=== PATIENT | female | born 1970 | race Caucasian/White ===

== ENCOUNTER 2019-11-06 14:15 | Emergency (ER) | payer OTHER, SELFPAY ==
[2019-11-06 14:20] VITALS: BP 104/76; PULSE 73; RESP 20; TEMP 36.3; O2SAT 97
--- NOTE | 2019-11-06 14:56 | ED.GENADULT ---
HPI - General Adult General Chief complaint: Skin/Abscess/Foreign Body Stated complaint: Rash on left wrist History of Present Illness HPI narrative: This is a 49-year-old female that comes in with a raised area to her left elbow and arm patient said started approximately a day ago Related Data Home Medications Medication Instructions Recorded Confirmed Iud 11/06/19 Klonopin 0.5 mg PO PRN 11/06/19 11/06/19 bupropion HCl 150 mg PO BID 11/06/19 11/06/19 gabapentin 600 mg PO HS 11/06/19 11/06/19 lamotrigine 100 mg PO BID 11/06/19 11/06/19 propranolol 40 mg PO Q12H 11/06/19 11/06/19 venlafaxine 100 mg PO BID 11/06/19 11/06/19 Allergies Allergy/AdvReac Type Severity Reaction Status Date / Time amoxicillin Allergy Unknown Verified 08/13/17 17:58 calcium carbonate Allergy Unknown Verified 08/13/17 17:58 iohexol Allergy Unknown Verified 07/18/19 17:41 [From CONTRAST - CT, XRAY] prasterone (DHEA) Allergy Unknown Verified 08/13/17 17:58 prochlorperazine Allergy Unknown Verified 07/18/19 17:41 CALCIUM PHOSPHATE Allergy Unknown Uncoded 08/13/17 17:58 Review of Systems Review of Systems: Narrative: CONSTITUTIONAL: Denies fever, chills, or sweats. EYES: Denies visual changes, redness, or discharge. ENT: Denies rhinorrhea, congestion, sore throat, or otalgia. CARDIOVASCULAR:Denies chest pain, palpitations, or edema. RESPIRATORY: Denies cough or dyspnea. GASTROINTESTINAL: Denies abdominal pain, nausea, vomiting, or diarrhea. GENITOURINARY: Denies dysuria or hematuria. SKINpositive rash or itching. MUSCULOSKELETAL:Denies back pain, joint pain, or myalgia. NEUROLOGIC: Denies headache, numbness, or weakness. PSYCHIATRIC:Denies anxiety or depression We will PMFSH Social History Social History (Updated 07/18/19 @ 17:57 by Henrik Razo PA-C) Smoking status: Never smoker Gender identity (if verbalized by the patient): Female Comments At time as signature, I have reviewed and agree with nursing past medical, social, surgical and family history. Please see nursing chart for further information. There is no relevant family history pertinent to the presenting complaint. Exam Narrative: Exam Narrative: GENERAL:Well-appearing, well-nourished, and in no acute distress. HEAD:Normocephalic, atraumatic. EYES: PERRLA and EOMI. ENT: Nares clear, no rhinorrhea or epistaxis. Mucous membranes moist. NECK: Supple. CHEST: Clear to auscultation. No respiratory distress. HEART: Regular rate and rhythm. No murmur heard. Normal peripheral pulses. ABDOMEN: Soft, nontender, nondistended, normal active bowel sounds. EXTREMITIES: Normal range of motion. No edema. SKIN: Warm, dry, positive erythema with itching rash. NEURO: No focal deficits. Alert and oriented x3. Course Vital Signs Vital signs: Vital Signs Temperature 97.3 F L 11/06/19 14:20 Pulse Rate 73 11/06/19 14:20 Respiratory Rate 20 11/06/19 14:20 Blood Pressure 104/76 11/06/19 14:20 Pulse Oximetry 97 11/06/19 14:20 Temperature 97.3 F L 11/06/19 14:20 Pulse Rate 73 11/06/19 14:20 Respiratory Rate 20 11/06/19 14:20 Blood Pressure 104/76 11/06/19 14:20 Pulse Oximetry 97 11/06/19 14:20 Medical Decision Making Vital Signs Vital Signs: Vital Signs Temperature 97.3 F L 11/06/19 14:20 Pulse Rate 73 11/06/19 14:20 Respiratory Rate 20 11/06/19 14:20 Blood Pressure 104/76 11/06/19 14:20 Pulse Oximetry 97 11/06/19 14:20 Temperature 97.3 F L 11/06/19 14:20 Pulse Rate 73 11/06/19 14:20 Respiratory Rate 20 11/06/19 14:20 Blood Pressure 104/76 11/06/19 14:20 Pulse Oximetry 97 11/06/19 14:20 Discharge Plan Discharge Clinical Impression: Contact dermatitis Qualifiers: Contact dermatitis type: allergic Contact dermatitis trigger: other trigger Qualified Code(s): L23.89 - Allergic contact dermatitis due to other agents Patient Disposition: Home, Self-Care Condition: Stable Instructions:
== END 2019-11-06 15:17 | disposition home or self-care (01) ==
PROVIDERS: Emergency Provider Nurse Practitioner Family; PCP Internal Medicine
DX: L23.89 Allergic contact dermatitis due to other agents (principal); F41.9 Anxiety disorder, unspecified; F31.9 Bipolar disorder, unspecified; G47.30 Sleep apnea, unspecified
CPT/HCPCS: 99213; G0463

== ENCOUNTER 2021-02-15 16:38 | Emergency (ER) | payer OTHER, SELFPAY ==
--- NOTE | ~2021-02-15 | XR_ITS ---
EXAMINATION: XR cervical spine 4-5V DATE: 02/15/2021 17:46 INDICATION: Posterior neck pain. TECHNIQUE: 4 views of cervical spine were obtained. COMPARISON: None. FINDINGS: Bone alignment is normal. Vertebral body heights are normal. There is mildly decreased disc height at C6-C7. There is severe facet joint osteoarthritis at C7-T1. No central canal stenosis or p revertebral soft tissue swelling. IMPRESSION: 1. Mild cervical spondylosis. Reviewed, dictated and finalized at location A.
[2021-02-15 16:53] VITALS: BP 121/78; PULSE 81; RESP 20; TEMP 36.8; O2SAT 98
--- NOTE | 2021-02-15 17:30 | ED.NECK ---
HPI - Neck Pain/Injury General Chief Complaint: Neck Pain/Injury Stated Complaint: Pain in Neck and Back Time Seen by Provider: 02/15/21 17:31 Source: patient Mode of arrival: ambulatory Limitations: no limitations History of Present Illness HPI Narrative: Elisabeth Melara is a 50 yo female with PMH of bipolar disorder [facility] pain bilaterally at the base of her neck and top of her shoulders that started 2 weeks ago.. She does not know if it was related initially to lifting but has gotten progressively worse. Able to move her head all directions with some discomfort Related Data Home Medications Medication Instructions Recorded Confirmed bupropion HCl 150 mg PO BID 11/06/19 02/15/21 lamotrigine 100 mg PO BID 11/06/19 02/15/21 venlafaxine 100 mg PO BID 11/06/19 02/15/21 gabapentin 300 mg PO DAILY 02/15/21 02/15/21 propranolol 20 mg PO BID 02/15/21 02/15/21 Allergies Allergy/AdvReac Type Severity Reaction Status Date / Time amoxicillin Allergy Unknown Hives Verified 02/15/21 17:26 calcium carbonate Allergy Unknown Unknown Verified 02/15/21 17:26 iohexol Allergy Unknown Unknown Verified 02/15/21 17:26 [From CONTRAST - CT, XRAY] prasterone (DHEA) Allergy Unknown Unknown Verified 02/15/21 17:26 prochlorperazine Allergy Unknown Unknown Verified 02/15/21 17:26 CALCIUM PHOSPHATE Allergy Unknown Unknown Uncoded 02/15/21 17:26 Review of Systems Review of Systems: Narrative: CONSTITUTIONAL: Denies fever, chills, sweats. EYES: Denies visual changes, redness, discharge. ENT: Denies rhinorrhea, congestion, sore throat, otalgia. CARDIOVASCULAR: Denies chest pain, palpitations, edema. RESPIRATORY: Denies dyspnea, wheezing, cough GASTROINTESTINAL: Denies abdominal pain, nausea, vomiting, diarrhea. GENITOURINARY: Denies dysuria, hematuria, abnormal discharge SKIN: Denies rash or itching. NEUROLOGIC: Denies numbness, or focal weakness. PSYCHIATRIC: Denies anxiety or depression. Neck pain and pain across the top of the shoulders PMFSH Past Medical History Medical History (Updated 02/15/21 @ 18:12 by Bisi Walls CNP) Depression No acute medical problems Family History Family History Other Diabetes mellitus Heart disease High cholesterol Hypertension Social History Social History (Updated 02/15/21 @ 17:37 by Bisi Walls CNP) Smoking status: Never smoker Alcohol intake: current Gender identity (if verbalized by the patient): Female Comments At time of signature, I agree with nursing past medical, surgical, social and family history. There is no relevant family history pertinent to the presenting complaint. Exam Narrative: Exam Narrative: GENERAL: This is a well-nourished, well-developed patient, in mild distress. HEAD: normocephalic, atraumatic. EYES: Sclera clear/white. Vision is grossly intact. EARS: External ears normal, Hearing grossly intact. NOSE: External nose normal without nasal discharge, nares without redness, no rhinorrhea. THROAT: Mucous membranes moist, NECK: Neck supple, tender at base and when turns neck left or right or bends forward CARDIOVASCULAR: Regular rate and rhythm without murmurs, gallops, or rubs. RESPIRATORY: Clear to auscultation. Breath sounds equal bilaterally. No wheezes, rales, or rhonchi. GASTROINTESTINAL: Abdomen soft, SKIN: warm, intact with no suspicious lesions or rash, good texture and turgor. NEURO: awake, alert, and oriented to person, place and time. There were no obvious focal neurologic abnormalities. Steady gait EXTREMITIES: Normal range of motion. BACK: Nontender without deformity Course Course Emergency Course: Patient has neck pain that started about 2 weeks ago and is gotten progressively worse Cervical spine x-ray is mild cervical spondylosis, both bone and alignment is normal, vertebral body heights are normal, mild decrease in disc height C6 and 7, no prevert
[2021-02-15] MEDS: KETOROLAC (*BKC) 60 MG/2 ML VIAL IM (18:08)
== END 2021-02-15 18:25 | disposition home or self-care (01) ==
PROVIDERS: Emergency Provider Nurse Practitioner; PCP Internal Medicine
DX: M43.6 Torticollis (principal); M47.812 Spondylosis without myelopathy or radiculopathy, cervical region; F32.9 Major depressive disorder, single episode, unspecified
CPT/HCPCS: 72050; 96372; 99213; G0463; J1885

== ENCOUNTER 2021-04-07 12:55 | Emergency (ER) | payer OTHER, SELFPAY ==
[2021-04-07 12:58] VITALS: BP 115/84; PULSE 97; RESP 20; TEMP 36.3; O2SAT 97
--- NOTE | 2021-04-07 13:25 | ED.URI ---
HPI - URI/Sore Throat General Chief Complaint: Upper Respiratory Infection Stated Complaint: cough chest congestion Time Seen by Provider: 04/07/21 13:15 Source: patient and RN notes reviewed Mode of arrival: ambulatory Limitations: no limitations History of Present Illness HPI Narrative: Patient presents today complaining of 2-day history of cough with body aches that started yesterday. Denies shortness of breath, fever, congestion, rhinorrhea, sore throat, loss of taste or smell, vomiting or diarrhea. Patient's teenage daughter was just notified this morning that she is COVID-19 positive. Patient states the daughter has been quarantining to her bedroom. Patient has not been vaccinated against COVID-19. Patient took 1 dose of Jacquelin-Witherbee plus this morning without relief. MD elicited complaint: cough Related Data Home Medications Medication Instructions Recorded Confirmed bupropion HCl 150 mg PO BID 11/06/19 04/07/21 lamotrigine 100 mg PO BID 11/06/19 04/07/21 venlafaxine 100 mg PO BID 11/06/19 04/07/21 gabapentin 300 mg PO DAILY 02/15/21 04/07/21 propranolol 20 mg PO BID 02/15/21 04/07/21 cetirizine [Zyrtec] 10 mg PO DAILY 04/07/21 04/07/21 ferrous sulfate [FeroSul] 325 mg PO DAILY 04/07/21 04/07/21 montelukast [Singulair] 10 mg PO DAILY 04/07/21 04/07/21 tizanidine 4 mg PO BID 04/07/21 04/07/21 Allergies Allergy/AdvReac Type Severity Reaction Status Date / Time amoxicillin Allergy Unknown Hives Verified 04/07/21 13:08 calcium carbonate Allergy Unknown Unknown Verified 04/07/21 13:08 iohexol Allergy Unknown Unknown Verified 04/07/21 13:08 [From CONTRAST - CT, XRAY] prasterone (DHEA) Allergy Unknown Unknown Verified 04/07/21 13:08 prochlorperazine Allergy Unknown Unknown Verified 04/07/21 13:08 CALCIUM PHOSPHATE Allergy Unknown Unknown Uncoded 04/07/21 13:08 Review of Systems Review of Systems: CONSTITUTIONAL: Denies fever, chills, or sweats.+ Body aches EYES: Denies visual changes, redness, or discharge. ENT: Denies rhinorrhea, congestion, sore throat, or otalgia. CARDIOVASCULAR: Denies chest pain, palpitations, or edema. RESPIRATORY: Denies dyspnea. + Cough GASTROINTESTINAL: Denies abdominal pain, nausea, vomiting, or diarrhea. GENITOURINARY: Denies dysuria or hematuria. SKIN: Denies rash, itching, or wounds. MUSCULOSKELETAL: Denies back pain, joint pain, or myalgia. NEUROLOGIC: Denies headache, numbness, tingling, or weakness. PSYCH: Denies depression or anxiety. [facility] Past Medical History Medical History (Updated 04/07/21 @ 14:30 by Sierra Franco, [facility], ) Bipolar disorder Depression Migraines Sleep apnea Family History Family History Other Diabetes mellitus Heart disease High cholesterol Hypertension Social History Social History (Updated 02/15/21 @ 17:37 by Bisi Walls CNP) Smoking status: Never smoker Alcohol intake: current Gender identity (if verbalized by the patient): Female Comments At time of signature, I have reviewed and agree with nursing past medical, surgical, social and family history unless otherwise noted. Please see nursing chart for further information. There is no relevant family history pertinent to the presenting complaint Exam Narrative: GENERAL: Well-appearing, well-nourished, and in no acute distress. HEAD: Normocephalic, atraumatic. EYES: EOMI. No redness or drainage. Conjunctivae normal. ENT: Mucous membranes pink and moist. Nares clear. No rhinorrhea. TMs normal bilaterally. Throat normal. Uvula midline. NECK: Normal AROM. Supple. No lymphadenopathy. CHEST: No respiratory distress. Clear to auscultation. HEART: Regular rate and rhythm. No murmur appreciated. Normal peripheral pulses. EXTREMITIES: Normal range of motion. No edema. SKIN: Warm, dry, no rash. Capillary refill normal. Normal skin turgor. NEURO: No focal deficits. Alert and oriented x3. Gait steady. PSYCH: Normal
[2021-04-08 18:30] LABS: SARS-CoV-2 RNA PCR Positive
== END 2021-04-07 13:34 | disposition home or self-care (01) ==
PROVIDERS: Emergency Provider Nurse Practitioner; PCP Internal Medicine
DX: U07.1 COVID-19 (principal); F31.9 Bipolar disorder, unspecified; G47.30 Sleep apnea, unspecified
CPT/HCPCS: 99213; C9803; G0463; U0003; U0005

== ENCOUNTER 2023-04-28 19:17 | Emergency (ER) | payer OTHER, SELFPAY ==
[2023-04-28 19:24] VITALS: BP 119/82; PULSE 78; RESP 20; TEMP 36.3; O2SAT 96
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
== END 2023-04-28 19:55 | disposition home or self-care (01) ==
PROVIDERS: Emergency Provider Registered Nurse; PCP Internal Medicine
DX: T25.112A Burn of first degree of left ankle, initial encounter (principal); X08.8XXA Exposure to other specified smoke, fire and flames, initial encounter; F31.9 Bipolar disorder, unspecified
CPT/HCPCS: 99213; G0463

== ENCOUNTER 2023-12-21 13:28 | Emergency (ER) | payer OTHER, SELFPAY ==
[2023-12-21 13:52] VITALS: BP 116/77; PULSE 76; RESP 18; TEMP 36.7; O2SAT 98
--- NOTE | 2023-12-21 14:16 | ED.URI ---
HPI - URI/Sore Throat General Chief Complaint: Upper Respiratory Infection Stated Complaint: Chest Congestion/Sore Throat Time Seen by Provider: 12/21/23 14:05 Source: patient, RN notes reviewed and old records reviewed Mode of arrival: ambulatory Limitations: no limitations History of Present Illness HPI Narrative: 53 year old female who presents to [facility] with complaints of one week duration of cough, stuffy nose with some drainage,frontal headache, sore throat,body aches, fatigue and chest congestion.. Patient reports that yesterday she was real achy and was running a low grade fevers. Patient reports that she has history of seasonal allergies and sinus problems Patient reports that she has been taking OTC cold and sinus medication and also taking Zyrtec without resolution in her symptoms. MD elicited complaint: cough, sore throat, rhinorrhea, nasal congestion, sinus pain and other (body aches headache) Pertinent past history: sinusitis and seasonal allergies Onset (ago): week(s) (1) Severity: moderate Description of mucous: yellow Treatments prior to arrival: other (cold and sinus medication and Zyrtec) Related Data Home Medications Medication Instructions Recorded Confirmed bupropion HCl 150 mg tablet,12 hr 150 mg PO BID 11/06/19 12/21/23 sustained-release lamotrigine 100 mg tablet 100 mg PO BID 11/06/19 12/21/23 venlafaxine 100 mg tablet 100 mg PO BID 11/06/19 12/21/23 gabapentin 300 mg capsule 300 mg PO DAILY 02/15/21 12/21/23 propranolol 20 mg tablet 20 mg PO BID 02/15/21 12/21/23 cetirizine 10 mg tablet (Zyrtec) 10 mg PO DAILY 04/07/21 12/21/23 ferrous sulfate 325 mg (65 mg 325 mg PO DAILY 04/07/21 12/21/23 iron) tablet (FeroSul) famotidine 20 mg tablet 20 mg PO DAILY 12/21/23 12/21/23 topiramate 25 mg tablet 25 mg PO PRN PRN mirgraines 12/21/23 12/21/23 Allergies Allergy/AdvReac Type Severity Reaction Status Date / Time amoxicillin Allergy Unknown Hives Verified 12/21/23 13:46 calcium carbonate Allergy Unknown Unknown Verified 12/21/23 13:46 iohexol Allergy Unknown Unknown Verified 12/21/23 13:46 [From CONTRAST - CT, XRAY] prasterone (DHEA) Allergy Unknown Unknown Verified 04/07/21 13:08 prochlorperazine Allergy Unknown Unknown Verified 12/21/23 13:46 CALCIUM PHOSPHATE Allergy Unknown Unknown Uncoded 12/21/23 13:46 Review of Systems Review of Systems: CONSTITUTIONAL: Reports malaise, chills, sweats, low grade fever. EYES: Denies visual changes, redness, or discharge. ENT: Reports rhinorrhea, congestion, sinus pain, no otalgia and positive for sore throat. CARDIOVASCULAR: Denies chest pain, palpitations, or edema. RESPIRATORY: Reports cough.? Denies dyspnea. GASTROINTESTINAL: Denies abdominal pain, nausea, vomiting, diarrhea SKIN: Denies rash or itching. MUSCULOSKELETAL: Reports myalgia. NEUROLOGIC:Reports headache. All systems reviewed & are unremarkable except as noted in HPI and below PMFSH Past Medical History Medical History Bipolar disorder Depression Migraines Sleep apnea Family History Family History Other Diabetes mellitus Heart disease High cholesterol Hypertension Social History Social History Smoking status: Never smoker Alcohol intake: current Gender identity (if verbalized by the patient): Female Comments At time of signature, agree with nursing past medical, surgical, social and family history. There is no relevant family history pertinent to the presenting complaint Exam Narrative: GENERAL: Well-appearing, well-nourished, and in no acute distress. HEAD: Normocephalic EYES: PERRLA, conjunctivae clear ENT: Nares clear, turbinates edematous and erythematous, clear to yellow discharge, sinus pressure and frontal headache. Mucous membranes moist. TM pearly godinez with dull l
== END 2023-12-21 14:25 | disposition home or self-care (01) ==
PROVIDERS: Emergency Provider Registered Nurse; PCP Internal Medicine
DX: J32.9 Chronic sinusitis, unspecified (principal); F31.9 Bipolar disorder, unspecified
CPT/HCPCS: 99213; G0463

== ENCOUNTER 2024-04-02 10:54 | Outpatient (CLI) | payer OTHER, SELFPAY ==
--- NOTE | ~2024-04-02 | MM_ITS ---
EXAMINATION: MM screening tejinder BI w meliza HISTORY: Screening TECHNIQUE: Craniocaudal and mediolateral oblique 3-D tomosynthesis images were obtained and synthetic 2-D images were generated. CAD analysis was submitted and interpreted. COMPARISON: No prior mammogram is available for comparison at this institution. BREAST PARENCHYMAL COMPOSITION: There are scattered areas of fibroglandular density. FINDINGS: There is no evidence of suspicious mass, calcification, or architectural distortion to sugg est malignancy in either breast. There has been no suspicious interval change. IMPRESSION: 1. No mammographic evidence of malignancy. 2. Recommend routine screening mammography in one year. BI-RADS Category 1: Negative Reviewed, dictated and finalized at location B.
== END 2024-04-02 10:55 | disposition home or self-care (01) ==
LOC: ANHIMG 10:55
PROVIDERS: PCP Internal Medicine; Visit Provider Obstetrics & Gynecology
DX: Z12.31 Encounter for screening mammogram for malignant neoplasm of breast (principal)
CPT/HCPCS: 77063; 77067

== ENCOUNTER 2024-12-17 13:09 | Emergency (ER) | payer OTHER, SELFPAY ==
--- NOTE | ~2024-12-17 | XR_ITS ---
XR chest 2V Ordering provider: EDI Barrera History: 54 years Female with . cough . Comparison: None. FINDINGS: MEDIASTINUM: The cardiac silhouette is not enlarged. LUNGS: No infiltrates, effusions or pneumothorax. OTHER: No free air under the diaphragm. IMPRESSION: No acute cardiopulmonary pathology. Reviewed, dictated and finalized at location A.
--- OUTSIDE RECORDS SUMMARY | 2024-12-17 13:12 | XMS_ITS | Referral Summary ---
Author Organization [facility] Address [address] [place] [address] Care Team Providers Care Foxer Name Role Phone Susan Plasencia MD Primary Care Provider Encounters Date Type Department Care Team Description 12/08/2024 1:30 PM CDT Office Visit [facility] [address] [place] [address] Martin Shahid MD MANUEL (obstructive sleep apnea) (Primary Dx); Hypersomnia with sleep apnea; Essential tremor; Restless leg syndrome; Morbid obesity with BMI of 40.0-44.9, adult (HCC) from Last 3 Months Allergies Active Allergy Reactions Criticality Noted Date Comments Amoxicillin Other (See comments) Reaction: Unknown, Dihydroergotamine Other (See comments) High Reaction: almost like a heart attack, Metrizamide Other (See comments) Low 11/06/2015 seizures Other Other (See comments) Low 02/19/2017 DHE 45-caused a mild heart attack Penicillins Potassium Other (See comments) Low Reaction: Unknown to patient. Prochlorperazine Prochlorperazine Maleate Other (See comments) Low 11/06/2015 feels like bugs are crawling on her skin Medications buPROPion SR (WELLBUTRIN SR) 150 mg 12 hr tablet take 1 tablet by oral route 2 times every day 0 0 4 Active cyanocobalamin , vitamin B-12, (VITAMIN B-12) 1,000 mcg tablet extended release daily 0 0 01/26/201 6 Active cholecalcifero l (VITAMIN D3) 1,000 unit capsule daily 0 0 6 Active ibuprofen (ibuprofen) 200 mg tab/cap take 3 capsule by oral route every 6 hours as needed 0 0 6 Active levonorgestrel (MIRENA) IUD as directed by Intrauterine route 0 Device 0 7 Active omeprazole (PriLOSEC) 20 mg capsule take 1 capsule by oral route every day 30 minutes to 1 hour before a meal 0 0 6 Active Additional Information Patient taking differently: 40 mg, Reported on 12/08/2024 venlafaxine (EFFEXOR) 100 mg tablet take 1 tablet by oral route 2 times every day with food 0 0 7 Active lamoTRIgine (LaMICtal) 100 mg tablet Take 1 tablet (100 mg total) by mouth Active meloxicam (MOBIC) 15 mg tablet Take 1 tablet (15 mg total) by mouth 5 Active cetirizine (ZyrTEC) 10 mg tablet Take 1 tablet (10 mg total) by mouth daily Active ferrous sulfate 325 mg (65 mg of elemental iron) tabletIndicati ons:Iron Deficiency Anemia Take 1 tablet (325 mg total) by mouth daily 30 tablet 11 2 Active propranoloL (INDERAL) 20 mg tablet TAKE 1 TABLET(20 MG) BY MOUTH TWICE DAILY 180 tablet 4 Active topiramate (TOPAMAX) 25 mg tablet Take 1 tablet (25 mg total) by mouth daily 5 Active gabapentin (NEURONTIN) 600 mg tablet Take 1 tablet (600 mg total) by mouth daily 30 tablet 3 5 Active gabapentin (NEURONTIN) 400 mg capsule TAKE 1 CAPSULE BY MOUTH EVERY NIGHT 90 capsule 1 5 025 Discontin ued(Alter ivy therapy) Active Problems Problem Noted Date Diagnosed Date Nasal septal perforation 10/16/2020 Assessment & Plan (10/16/2020 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 Followed by Aquaphor apply pea-size amount into each nostril with a cotton tipped applicator, being carefully just to tuck it into each nostril, then massage soft portion of the outer nose to massage the ointment around inside the nose for at least 6 weeks Second possible option Septal button Third option would be referral Radiotelephone Technical Operator for discussion regarding repair Fatigue 10/26/2018 Migraine with aura and witho ut status migrainosus, not intractable 10/22/2018 Tremor 11/10/2017 Mixed stress and urge urinary incontinence 10/27 Overview (07/16/2020): Note: Unchanged Surveillance of previously p rescribed intrauterine contraceptive device 10/27/2017 Overview (07/16/2020): Note: Unchanged Sleep apnea 10/02/2016 Overview (11/27/2016): Sleep apnea 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 PLMD (periodic limb movement disorder) 6 Obesity with body mass index 30 or greater 09/18 Overview (11/27/2016): BMI 30+ - obesity Mixed anxiety depressive disorder 07/22/2014 Overview (11/27/2016): Depression with anxiety Insomnia 07/22/2014 Overview (11/27/2016): Insomnia Gastroesophageal reflux disease 01/07/2014 Overview (11/27/2016): ESOPHAGEAL REFLUX Depression 01/07/2014 Overview (11/28/2016): DEPRESSIVE DISORDER NEC Immunizations Immunization Administration Dates Next Due Influenza, Quadrivalent, Spl it, Intramuscular 05/11/2017,05/09/2016,05/23/2015 Tdap 02/19/2018,02/07/2016 Social History Tobacco Use Types Packs/Day Years Used Date Smoking Tobacco: Never Alcohol Use Standard Drinks/Week Comments Yes 0 (1 standard drink = 0.6 oz pur e alcohol) Comments No Sex and Gender Information Value Date Recorded Sex Assigned at Not on file Legal Sex Female 11:49 PM HIGH SCHOOL BIOLOGY TEACHER Gender Identity Not on file Sexual Orientation Not on file Last Filed Vital Signs Vital Sign Reading Time Taken Comments Blood Pressure 121/79 12/08/2024 1:44 PM CDT Pulse 81 12/08/2024 1:44 PM CDT Temperature 36.3 C (97.3 F) 10/16/2020 10:46 AM HIGH SCHOOL BIOLOGY TEACHER Respiratory Rate 16 02/19/2018 1:49 AM CDT Oxygen Saturation 93% 12/08/2024 1:44 PM CDT Inhaled Oxygen Concentration - - Weight 104.5 kg (230 lb 6.4 oz) 12/08/2024 1:44 PM CDT Height 157.5 cm (5' 2.01 ) 12/08/2024 1:44 PM CD T Body Mass Index 42.13 12/08/2024 1:44 PM CDT Plan of Treatment Not on file Procedures Procedure Name Priority Date/Time Associated Diagnosis Comments SCREENING MAMMOGRAM BILATERAL W LEFTY Schedule Routine, Read Routine (OP Routine) 03/29/2022 11:35 AM CDT Screening mammogram, encounter for THINPAP, REFLEX HPV ALL PTH Routine 07/14/2013 1:16 PM HIGH SCHOOL BIOLOGY TEACHER from Last 3 Months or Most Recently Relevant to Health Maintenance Results * Screening Mammogram Bilateral W Lefty (03/29/2022 11:35 AM CDT) Anatomical Region Laterality Modality Breast Bilateral Mammography 03/31/2022 12:1 1 PM CDT Impressions 03/31/2022 12:11 PM CDT There is no mammographic evidence of malignancy. A 1 year screening mammogram is recommended. BI-RADS: 1 - Negative. The patient has been or will be contacted. The patient will be entered into a reminder system with a target due date of 1 year for her next mammogram. Electronically signed by: Kiel Coto M.D. Narrative 03/31/2022 12:11 PM CDT EXAMINATION: SCREENING MAMMOGRAM BILATERAL W LEFTY ORDERING HEALTHCARE PROVIDER: SELF SCREENING MAMMOGRAM HISTORY: Routine screening mammography. COMPARISON: 10/27/2020, 05/18/2019, 09/06/2018, 04/05/2018, 10/14/2016 TECHNIQUE: CC and MLO views of the bilateral breasts were obtained with digital technique using breast tomosynthesis with C view. Computer aided detection was utilized. FINDINGS: DENSITY: There are scattered fibroglandular elements in the bilateral breasts. BREASTS: There are no suspicious masses, suspicious calcifications, or other suspicious findings in either breast. There has been no suspicious interval change. us Self Screening Mammogram IMG MAMMO PROCEDURES Fi nal Result * ThinPrep Pap, Reflex HPV all pth (07/14/2013 1:16 PM HIGH SCHOOL BIOLOGY TEACHER) SOURCE: SEE NOTE [facility] HISTORICAL RESULTS Comment:Cervix, Endocervix CLINICAL INFORMATION: SEE NOTE [facility] HISTORICAL RESULTS Comment:Normal exam LMP SEE NOTE [facility] HISTORICAL RESULTS Comment:Information not prov ided Previous Pap SEE NOTE [facility] HISTORICAL RESULTS Comment:06/16/12 Prev. Bx SEE NOTE [facility] HISTORICAL RESULTS Comment:Information not prov ided Pap, specimen adequacy SEE NOTE [facility] HISTORICAL RESULTS Comment: Satisfactory for evaluation. Endocervical/transformation zone component present. Age and/or menstrual status not provided HPV interp SEE NOTE [facility] HISTORICAL RESULTS Comment:Negative for intraep ithelial lesion or malignancy. Lactobacillus species SEE NOTE [facility] HISTORICAL RESULTS Comment: This Pap test has been evaluated with computer assisted technology. Tuber Operator SEE NOTE [facility] HISTORICAL RESULTS Comment: BLG, CT(ASCP) Test performed at [facility] [address] Director: VALERIE CADET DO, MPH 07/14/2013 1:16 PM HIGH SCHOOL BIOLOGY TEACHER Ying Messina NP LAB PATHOLOGY ORDERABLES F inal Result [facility] HISTORICAL RESULTS from Last 3 Months or Most Recently Relevant to Health Maintenance Insurance [facility] Member Subscriber Plan / Payer (Ef fective 2018-Present) Name:Elisabeth Melara Relation to Subscriber:Self Name:Elisabeth Melara Payer ID:[id number] (NAIC) Group ID:Not on file Type:MEDICAID RISK OTHER [address]: [address] [place] [address] [place] [address] Care Teams Foxer Relationship Specialty Start Date End Date Susan Plasencia MD [address] [place] [address] PCP - General 11/21/16
--- OUTSIDE RECORDS SUMMARY | 2024-12-17 13:12 | XMS_ITS | Clinical Summary ---
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): Nasal saline spray (Simply saline, Little Remedies, [place], [place]) 2 second sprays or 2 squeezes into [...] Septal button Third option would be referral Furniture Packer for discussion regarding repair Fatigue 10/26/2018 Migraine [...] Depression 01/07/2014 Overview (11/28/2016): DEPRESSIVE DISORDER NEC Encounters Date Type Department Care Team Description 12/08/2024 1:30 PM CDT Office Visit [facility] [address] [place] [address] [address] [address] Martin Shahid MD MANUEL (obstructive sleep apnea) (Primary Dx); Hypersomnia with sleep apnea; Essential tremor; Restless leg syndrome; Morbid obesity with BMI of 40.0-44.9, adult (HCC) from Last 3 Months Immunizations Immunization Administration Dates Next Due Influenza, Quadrivalent, Spl it, Intramuscular 05/11/2017,05/09/2016,05/23/2015 Tdap 02/19/2018,02/07/2016 Surgical History Surgery Date Site/Laterality Comments OTHER SURGICAL HISTORY , compound presentation: section OTHER SURGICAL HISTORY Ovarian cyst, pelvic pain - Endometriosis: Laparoscopic LSO BREAST BIOPSY Right pt was 20 yrs old at the time OOPHORECTOMY Left Medical History Medical History Date Comments Hx Other Medical lumpectomy-Rt b reast/benign Gastroesophageal reflux disease GERD Hx Other Medical Headache, migra ine Depression Depression History of multiple allergies Al lergies Hx Other Medical , comp ound presentation; Comments: RED 07/22/2014 - Hx Other Medical Ovarian cyst, p elvic pain - Endometriosis; Comments: RED 07/22/2014 - Family History Medical History Relation Name Comments Ovarian cancer Cousin Cancer, ovari an; Diabetes type II Father Diabetes -T ype II; Hyperlipidemia Father Hyperlipidemi a; Hypertension Father Hypertension; Other Father Alive and well; Diabetes type II Mother Diabetes -T ype II; Hypothyroidism Mother Hypothyroidis m; Other Mother Alive and well; Colon cancer Mother's Brother Cancer, col on; Breast cancer Mother's Sister Cancer, juan carlos ast; Breast cancer Other Maternal cousin x2 Cancer, breast; Relation Name Status Comments Cousin Father Alive Mother Alive Mother's Brother Mother's Sister Other Maternal cousin x2 Social History Tobacco Use Types Packs/Day Years Used Date Smoking Tobacco: Never Alcohol Use Standard Drinks/Week Comments Yes 0 (1 standard drink = 0.6 oz pur e alcohol) Comments No Sex and Gender Information Value Date Recorded Sex Assigned at Not on file Legal Sex Female 11:49 PM MILLING MACHINE TENDER Gender Identity Not on file Sexual Orientation Not on file Obstetrics History Para Term AB IAB SAB Ectopic Multiple Livin g Live Births 3 3 3 Date Outcome GA Total Labor Labor/2nd/3rd Weight Sex Type Anes PTL Lucita A1 A5 Name Clin Term Term Term Last Filed Vital Signs Vital Sign Reading Time Taken Comments Blood Pressure 121/79 12/08/2024 1:44 PM CDT Pulse 81 12/08/2024 1:44 PM CDT Temperature 36.3 C (97.3 F) 10/16/2020 10:46 AM MILLING MACHINE TENDER Respiratory Rate 16 02/19/2018 1:49 AM CDT Oxygen Saturation 93% 12/08/2024 1:44 PM CDT Inhaled Oxygen Concentration - - Weight 104.5 kg (230 lb 6.4 oz) 12/08/2024 1:44 PM CDT Height 157.5 cm (5' 2.01 ) 12/08/2024 1:44 PM CD T Body Mass Index 42.13 12/08/2024 1:44 PM CDT Plan of Treatment Health Maintenance Due Date Last Done Comments Colon Cancer Screening-Colonoscopy 1972 Depression Screening 1972 Hepatitis C Screening 1972 Hepatitis B Screening 1990 Regular Well Visit/Exam 18-64 1990 Cervical Cancer Screening 07/14/2014 07/14/2013 Zoster Vaccine (1 of 2) 2022 Breast Cancer Screening-Mammogram 03/29/2023 03/29/2022, 10/27/2020, 05/18/2019, Additional history exists Influenza Vaccine (Season Ended) 2025 05/11/2017, 05/09/2016, 05/23/2015 DTaP/Tdap/Td Vaccine (3 - Td or Tdap) 02/20/2028 02/19/2018, 02/07/2016 Pneumococcal vaccine <65 Aged Out No longer eligible based on patient's age to complete this topic Procedures Procedure Name Priority Date/Time Associated Diagnosis Comments SCREENING MAMMOGRAM BILATERAL W LEFTY Schedule Routine, Read Routine (OP Routine) 03/29/2022 11:35 AM CDT Screening mammogram, encounter for THINPAP, REFLEX HPV ALL PTH Routine 07/14/2013 1:16 PM MILLING MACHINE TENDER from Last 3 Months or Most Recently [...] Reflex HPV all pth (07/14/2013 1:16 PM MILLING MACHINE TENDER) SOURCE: SEE NOTE [facility] HISTORICAL RESULTS Comment:Cervix, [...] has been evaluated with computer assisted technology. Manufacturing Engineer Assembly SEE NOTE [facility] HISTORICAL RESULTS Comment: BLG, CT(ASCP) Test performed at [facility] [address] [address] Director: VALERIE CADET DO, MPH 07/14/2013 1:16 PM MILLING MACHINE TENDER Ying Messina NP LAB PATHOLOGY ORDERABLES F inal Result [facility] HISTORICAL RESULTS from Last 3 Months or Most Recently Relevant to Health Maintenance Insurance [facility] Care Teams Livestock Slaughterer Relationship Specialty Start Date End Date Susan Plasencia MD [address] [place] [address] PCP - General 11/21/16
--- OUTSIDE RECORDS SUMMARY | 2024-12-17 13:12 | XMS_ITS | Clinical Summary ---
Author Organization [facility] Address [address] [place] [address] Phone Care Team Providers Care Stapler Machine Name Role Phone DESTIN BENOIT MD Unavailable [phone] MADDIE CARRASCO Primary Care Provider [phone] Reason for Visit and Chief Complaint gynecologic annual exam, Pt presents for problem in addition to annual exam - The Chief Complaint is: WWE and IUD ck Problems Includes: Problems addressed during this encounter and other active Problems All Visits Onset Date Resolved Date Provider Condition S tatus Gynecologic Services Intrauterine Device (Iud) Checking 10/27/2017 DESTIN BENOIT MD Active Last Documented On 10/27/2017 2:56PM ; [facility] Note: Unchanged Urge and Stress Incontinence 10/27/2017 DESTIN BENOIT MD Active Last Documented On 10/27/2017 2:56PM ; [facility] Note: Unchanged Plan of Treatment - Weight loss diet - Last Documented On 07/30/2020 4:11PM ; [facility] - Clinical summary provided to patient - Last Documented On 07/30/2020 4:11PM ; [facility] PT TO CALL WITH ANY CHANGE IN STATUS ALL QUESTIONS ANSWERED WITH UNDERSTANDING VERBALIZED BY PT. - Last Documented On 07/30/2020 4:11PM ; [facility] Instructions to patient Instructed to call if excess rhys bleeding or abdominal/pelvic pain Last Documented On 0 3:54PM ; [facility] Instructions For Patient: Mo nthly Self Breast Exam Last Documented On 0 3:54PM ; [facility] Recommend diet and exercise at least 30 min three times per week Last Documented On 0 3:54PM ; [facility] Education and Decision Aids were provided during visit for: Patient education RE: shalom kumar signals associated with hormonal contraceptive use including abdominal, chest, or leg pain, headaches or visual disturbances Last Documented On 0 3:54PM ; [facility] Patient Education: Daily irwin cium and vitamin D Last Documented On 0 3:54PM ; [facility] Assessments Includes: Assessments from this encounter Findings - NORMAL FEMALE EXAM - Last Documented On 07/30/2020 4:11PM ; [facility] - Screen malignant neoplasm cervix - Last Documented On 07/30/2020 4:11PM ; [facility] Instructions Includes: Instructions from this encounter Instructions to patient Instructed to call if excess rhys bleeding or abdominal/pelvic pain Last Documented On 0 3:54PM ; [facility] Instructions For Patient: Mo nthly Self Breast Exam Last Documented On 0 3:54PM ; [facility] Recommend diet and exercise at least 30 min three times per week Last Documented On 0 3:54PM ; [facility] Education and Decision Aids were provided during visit for: Patient education RE: lorenaerika josé signals associated with hormonal contraceptive use including abdominal, chest, or leg pain, headaches or visual disturbances Last Documented On 0 3:54PM ; [facility] Patient Education: Daily irwin cium and vitamin D Last Documented On 0 3:54PM ; [facility] Medical Equipment - Implanted Devices Includes: Current Devices No Medical Equipment Recorded Medications Includes: Medications discussed during this encounter and other current Medications Current Medications (continue as prescribed) ZyrTEC Allergy 10 MG Oral Tablet 07/30/2020 Provider : Diagnosis: Last Documented On 0 3:29PM By EMILY BURGESS ; [facility] omprezole 20mg 30 Oral Capsule 07/13/2019 Provider: Diagnosis: Last Documented On 9 2:36PM By PAULA SOUZA LPN ; [facility] Mirena (52 MG) 20 MCG/24HR Intrauterine Intraute rine device 07/13/2019 Provider: Diagnosis: Last Documented On 0 3:54PM [facility] ; [facility] Propranolol HCl 40MG Oral Tablet 11/23/2018 Provider : Diagnosis: Last Documented On 9 2:42PM By EMILY BURGESS ; [facility] Metoclopramide HCl 5MG Oral Tablet 11/23/2018 Provid er: Diagnosis: prn Last Documented On 9 2:43PM By EMILY BURGESS ; [facility] ClonazePAM 0.5MG Oral Tablet 10/27/2017 Provider: Diagnosis: Last Documented On 8 1:52PM By EMILY BURGESS ; [facility] Gabapentin 600MG Oral Tablet 10/27/2017 Provider: Diagnosis: Last Documented On 8 1:52PM By EMILY BURGESS ; [facility] Wellbutrin SR 150MG Oral Tablet Extended Release 12 Ho ur 10/27/2017 Provider: Diagnosis: bid Last Documented On 8 1:53PM By EMILY BURGESS ; [facility] Venlafaxine HCl ER 150MG Oral Capsule Extended R elease 24 Hour 10/27/2017 Provider: Diagnosis: bid Last Documented On 8 1:53PM By EMILY BURGESS ; [facility] LamoTRIgine 100MG Oral Tablet 10/27/2017 Provider: Diagnosis: Last Documented On 8 1:54PM By EMILY BURGESS ; [facility] Medications Administered Includes: Administered Medications from this encounter No Administered Medications Recorded Vital Signs Includes: Vital Signs from this encounter Vital Name 07/30/2020 03:20P Blood Pressure Sitting (mmHg) 110/70 Temp-Oral (F) 97.9 Height (in) 60.25 Weight (lb) 214.5 Body Mass Index (kg/m2) 41.5 Body Surface Area (m2) 1.9 Last Documented: On 07/30/2020 3:26PM ; [facility] Results Includes: Results discussed during this encounter No Results Recorded For Specified Dates History of Present Illness Includes: History of Present Illness from this encounter ESHA KONG is a 50 year old female. - Medication reconciliation performed - Medication list reviewed - PRIMARY CARE PROVIDER : Dr Carrasco Social History Description Last Updated Sexually active 07/30/2020 Last Documented On 0 4:11PM ; [facility] The most recent IUD was inserted: 201809/30/2019 Last Documented On 0 3:19PM ; [facility] Not using drugs 11/23/2018 Last Documented On 0 3:19PM ; [facility] Smoking status : Never smoker 11/23/2018 Last Documented On 0 3:19PM ; [facility] Alcohol use 1-2 drinks a year 10/27/2017 Last Documented On 0 3:19PM ; [facility] In monogamous relationship 10/27/2017 Last Documented On 0 3:19PM ; [facility] Marital history 10/27/2017 Last Documented On 0 3:19PM ; [facility] Not exercising regularly 10/27/2017 Last Documented On 0 3:19PM ; [facility] Sexually active with 1 partners in the l ast year 10/27/2017 Last Documented On 0 3:19PM ; [facility] Procedures and Surgical History Includes: Procedures from this encounter Procedures Code Diagnosis Performing Provider Service L ocation Service Date education and instructions Last Documented On 0 3:54PM ; [facility] explanation of plan pt to co ntaqct PCP regarding thyroid panel for weight gain concerns, as she just had serology draw which may have included this testing Last Documented On 0 4:09PM ; [facility] medical regimen review Last Documented On 0 3:54PM ; [facility] Discussed Contraception Last Documented On 0 3:54PM ; [facility] Urged Exercise and Diet , exercise at le ast 30 min three times per week Last Documented On 0 3:54PM ; [facility] cervical Pap smear 99255 Last Documented On 0 3:54PM ; [facility] FIT Test-Fecal Occult negative 32606 Last Documented On 0 3:54PM ; [facility] Surgical History Last Updated Surgical / procedural histor y Right fallopian tube and ovary removed because of enometriosis- TCK around 2008 [facility] ~Lump right breast- benign- at 20 years old ~C/S 12/21/07 TCK 10/27/2017 Last Documented On 0 3:19PM ; [facility] Medical History Includes: Medical History addressed during this encounter Description Last Updated A mammogram was performed 07/30/2020 Last Documented On 0 4:11PM ; [facility] LMP: 07/27/2020 and before that was 03/12 2007/30/2020 Last Documented On 0 4:11PM ; [facility] History of Pap smear done 11/23/201802/2020 Last Documented On 0 4:11PM ; [facility] History of screening mammogram was perfo rmed 09/06/2018 07/30/2020 Last Documented On 0 4:11PM ; [facility] Contraception: 07/13/19 jim nii of old mirena and insertion of new mirena; IUD this is the second one, done in [place] at [facility] 201409/30/2019 Last Documented On 0 3:19PM ; [facility] Last pap smear date 11/23/2018 07/13/2019 Last Documented On 0 3:19PM ; [facility] Last mammogram date: 09/06/2018 9 Last Documented On 0 3:19PM ; [facility] chlamydia 2001 ~Bipolar ~Sleep apnea 01/2018 Last Documented On 0 3:19PM ; [facility] Result: normal 10/27/2017 Last Documented On 0 3:19PM ; [facility] Result: normal 10/27/2017 Last Documented On 0 3:19PM ; [facility] section x 1 10/27/2017 Last Documented On 0 3:19PM ; [facility] Vaginal delivery x 2 10/27/2017 Last Documented On 0 3:19PM ; [facility] Sexually active 10/27/2017 Last Documented On 0 3:19PM ; [facility] 3 10/27/2017 Last Documented On 0 3:19PM ; [facility] Para 3 10/27/2017 Last Documented On 0 3:19PM ; [facility] Family History Includes: Family History addressed during this encounter Description Last Updated Family history of malignant female breast neoplasm cousin double masectomy 10/27/2017 Last Documented On 0 3:19PM ; [facility] Fraternal history of diabetes mellitus b rother type 1 10/27/2017 Last Documented On 0 3:19PM ; [facility] Maternal aunt's history of m alignant female breast neoplasm maternal aunt from Breast ca ~ 10/27/2017 Last Documented On 0 3:19PM ; [facility] Maternal history of diabetes mellitus mo m type 2 10/27/2017 Last Documented On 0 3:19PM ; [facility] Maternal uncle's history of malignant neoplasm of large intestine Maternal uncle 10/27/2017 Last Documented On 0 3:19PM ; [facility] Paternal history of diabetes mellitus da d 10/27/2017 Last Documented On 0 3:19PM ; [facility] Paternal history of pure hypercholestero lemia dad 10/27/2017 Last Documented On 0 3:19PM ; [facility] Second child named 05/27/02 female 6# 10o z TCK 10/27/2017 Last Documented On 0 3:19PM ; [facility] First child named 02/16/01 male TCK 10/27 Last Documented On 0 3:19PM ; [facility] Third child named 12/21/07 male C/S 7# 7o z TCK 10/27/2017 Last Documented On 0 3:19PM ; [facility] Spouse name: Crow 10/27/2017 Last Documented On 0 3:19PM ; [facility] Family history of malignant neoplasm of the ovary cousin 10/27/2017 Last Documented On 0 3:19PM ; [facility] Hypertension 10/27/2017 Last Documented On 0 3:19PM ; [facility] Review of Systems Includes: Review of Systems from this encounter Systemic: Not tiring easily. No fever, no chills, no unusual bleeding, and no recent weight change 15 lb weight gain. No pain. Head: No headache. Neck: No neck pain and no swollen glands in the neck. Eyes: No vision problems. Breasts: No breast symptoms, no breast lump, no pain in breast, and patient performs self breast exams. Cardiovascular: No chest pain or discomfort and no palpitations. Pulmonary: No pulmonary symptoms, no dyspnea, no cough, and no wheezing. Gastrointestinal: No heartburn. No nausea, no vomiting, no abdominal pain, no diarrhea, and no constipation. Genitourinary: No change in urinary frequency and no incomplete emptying of bladder. No urinary loss of control and no dysuria. No genital lesion, no pain during intercourse, and no vaginal dryness. Normal menses and no nonmenstrual bleeding. No vaginal discharge. Endocrine: No polydipsia, no hot flashes, and libido has not changed. Musculoskeletal: No back pain, no muscle aches, and no localized joint pain. Neurological: No dizziness. Psychological: No anxiety, no depression, and a desire to continue living. Skin: No pruritus. No skin lesions and no rash. Mental Status Includes: Mental Status from this encounter Description Oriented to time, place, and person No anxiety A desire to continue living Functional Status Includes: Functional Status from this encounter No Functional Status Recorded Physical Exam Includes: Physical Exam from this encounter Allergies Includes: Active Allergies Substance Type Reaction Onset Date Resolved Date Statu s Iodine Allergy 10/27/2017 Active Last Documented On 0 11:12AM ; [facility] COMPAZINE Allergy 10/27/2017 Active Last Documented On 0 11:12AM ; [facility] Amoxicillin Allergy 10/27/2017 Active Last Documented On 0 11:12AM ; [facility] Encounters Encounter Provider Location Date Check-In Time Check-Out Time Diagnosis WELL WOMAN EXAM SURI STONE RN [facility] 07/30/20 20 3:00PM 4:10PM Normal Female Exam,Screen Malignant Neoplasm Cervix Insurance Includes: Active Insurance Policies Plan Name Member ID Group # Subscriber Relationship Effect rhys Dates - [facility] [id number] CONNER KONG Self Clinical Notes Includes: Clinical Notes from this encounter No Clinical Notes Recorded
--- OUTSIDE RECORDS SUMMARY | 2024-12-17 13:12 | XMS_ITS | Clinical Summary ---
Author Organization [facility] Address [address] [place] [address] Phone Care Team Providers Care Grinder And Plater Name Role Phone DESTIN BENOIT MD Unavailable [phone] MADDIE CARRASCO Primary Care Provider [phone] Reason for Visit and Chief Complaint NO SHOW Problems Includes: Problems addressed during this encounter and other active Problems All Visits Onset Date Resolved Date Provider Condition S tatus Gynecologic Services Intrauterine Device (Iud) Checking 10/27/2017 DESTIN BENOIT MD Active Last Documented On 10/27/2017 2:56PM ; [facility] Note: Unchanged Urge and Stress Incontinence 10/27/2017 DESTIN BENOIT MD Active Last Documented On 10/27/2017 2:56PM ; [facility] Note: Unchanged Plan of Treatment No Plan of Treatment Recorded Assessments Includes: Assessments from this encounter No Assessments Recorded Medical Equipment - Implanted Devices Includes: Current Devices No Medical Equipment Recorded Medications Includes: Medications discussed during this encounter and other current Medications Current Medications (continue as prescribed) ZyrTEC Allergy 10 MG Oral Tablet 07/30/2020 Provider : Diagnosis: Last Documented On 0 3:29PM By EMILY BURGESS ; [facility] omprezole 20mg 30 Oral Capsule 07/13/2019 Provider: Diagnosis: Last Documented On 9 2:36PM By PAULA SOUZA LPN ; [facility] Mirena (52 MG) 20 MCG/24HR Intrauterine Intraute rine device 07/13/2019 Provider: Diagnosis: Last Documented On 0 3:54PM By SURI PRESTON ; [facility] Propranolol HCl 40MG Oral Tablet 11/23/2018 Provider : Diagnosis: Last Documented On 9 2:42PM By EMILY BURGESS ; [facility] Metoclopramide HCl 5MG Oral Tablet 11/23/2018 Provid er: Diagnosis: prn Last Documented On 9 2:43PM By EMILY BURGESS ; [facility] ClonazePAM 0.5MG Oral Tablet 10/27/2017 Provider: Diagnosis: Last Documented On 8 1:52PM By EMILY BURGESS ; [facility] Gabapentin 600MG Oral Tablet 10/27/2017 Provider: Diagnosis: Last Documented On 8 1:52PM By EMILY BURGESS ; [facility] Wellbutrin SR 150MG Oral Tablet Extended Release 12 Ho ur 10/27/2017 Provider: Diagnosis: bid Last Documented On 8 1:53PM By EMILY BURGESS ; [facility] Venlafaxine HCl ER 150MG Oral Capsule Extended R elease 24 Hour 10/27/2017 Provider: Diagnosis: bid Last Documented On 8 1:53PM By EMILY BURGESS ; [facility] LamoTRIgine 100MG Oral Tablet 10/27/2017 Provider: Diagnosis: Last Documented On 8 1:54PM By EMILY BURGESS ; [facility] Medications Administered Includes: Administered Medications from this encounter No Administered Medications Recorded Results Includes: Results discussed during this encounter No Results Recorded For Specified Dates History of Present Illness Includes: History of Present Illness from this encounter No History of Present Illness Recorded Social History No Social History Recorded - Smoking Status Unknown Medical History Includes: Medical History addressed during this encounter No Medical History Recorded Family History Includes: Family History addressed during this encounter No Family History Recorded Review of Systems Includes: Review of Systems from this encounter No Review of Systems Recorded Mental Status Includes: Mental Status from this encounter No Mental Status Recorded Functional Status Includes: Functional Status from this encounter No Functional Status Recorded Physical Exam Includes: Physical Exam from this encounter No Physical Exam Recorded Allergies Includes: Active Allergies Substance Type Reaction Onset Date Resolved Date Statu s Iodine Allergy 10/27/2017 Active Last Documented On 0 11:12AM ; [facility] COMPAZINE Allergy 10/27/2017 Active Last Documented On 0 11:12AM ; [facility] Amoxicillin Allergy 10/27/2017 Active Last Documented On 0 11:12AM ; [facility] Encounters Encounter Provider Location Date Check-In Time Check-Out Time Diagnosis NO SHOW SURI STONE RN [facility] 10/14/2022 1:36PM 11:59PM Insurance Includes: Active Insurance Policies Plan Name Member ID Group # Subscriber Relationship Effect rhys Dates 1 - [facility] [id number] CONNER KONG Self Clinical Notes Includes: Clinical Notes from this encounter No Clinical Notes Recorded
--- OUTSIDE RECORDS SUMMARY | 2024-12-17 13:13 | XMS_ITS | Encounter Summary ---
Author Organization [facility] Address [address] [place] [address] Phone Care Team Providers Care Mold Construction Supervisor Name Role Phone Susan Plasencia MD Primary Care Provider [phone] William Meier MD Unavailable Reason for Visit * Reason Comments Medication Refill Encounter Details Date Type Department Care Team (Late st Contact Info) Description 05/14/2020 Refill [facility] - Neurology [facility] [address] [place] [address] William Meier MD [address] [place] [address] Medication Refill Social History Tobacco Use Types Packs/Day Years Used Date Smoking Tobacco: Never Smokeless Tobacco: Never Alcohol Use Standard Drinks/Week Comments No 0 (1 standard drink = 0.6 oz pur e alcohol) Comments No Sex and Gender Information Value Date Recorded Sex Assigned at Not on file Legal Sex Female 10:34 PM CDT Gender Identity Not on file Sexual Orientation Not on file Occupation Industry Job Start Date Job End Date unemployed Not on file Not on file Not on file documented as of this encounter Plan of Treatment Not on file documented as of this encounter Visit Diagnoses Not on filedocumented in this encounter Care Teams Mold Construction Supervisor Relationship Specialty Start Date End Date Susan Plasencia MD [address] [place] [address] PCP - General Internal Medicine 09/19/15 William Meier MD [address] [place] [address] Consulting Physician Neurology 02/19/17 07/10/24 documented as of this encounter
--- OUTSIDE RECORDS SUMMARY | 2024-12-17 13:13 | XMS_ITS | Encounter Summary ---
Author Organization [facility] Address [address] [place] [address] Phone Care Team Providers Care Sewing Trimmer Name Role Phone Susan Plasencia MD Primary Care Provider [phone] William Meier MD Unavailable Reason for Visit * Reason Comments Medication Refill Encounter Details Date Type Department Care Team (Late st Contact Info) Description 01/10/2020 Refill [facility] - Neurology [facility] [address] [place] [address] Miranda Coker, ACCOUNTS PAYABLES CLERK, STEEL RULE INSPECTOR [address] [place] [address] Medication Refill Social History Tobacco [...] on filedocumented in this encounter Care Teams Sewing Trimmer Relationship Specialty Start Date End Date Susan Plasencia MD [address] [place] [address] PCP - General Internal Medicine 09/19/15 William Meier MD [address] [place] [address] Consulting Physician Neurology 02/19/17 07/10/24 documented as of this encounter
--- OUTSIDE RECORDS SUMMARY | 2024-12-17 13:13 | XMS_ITS | Encounter Summary ---
Author Organization [facility] Address [address] [place] [address] Phone Care Team Providers Care Emergency Generator Mechanic Name Role Phone Susan Plasencia MD Primary Care Provider [phone] William Meier MD Unavailable [phone] Reason for Visit * Reason Comments Medication Refill Encounter Details Date Type Department Care Team (Late st Contact Info) Description 02/07/2020 Refill [facility] - Neurology [facility] [address] [place] [address] William Meier MD [address] [place] [address] Medication Refill Social History [...] documented as of this encounter Visit Diagnoses Diagnosis RLS (restless legs syndrome) Restless legs syndrome (RLS) documented in this encounter Care Teams Emergency Generator Mechanic Relationship Specialty Start Date End Date Susan Plasencia MD [address] [place] [address] PCP - General Internal Medicine 09/19/15 William Meier MD [address] [place] [address] Consulting Physician Neurology 02/19/17 07/10/24 documented as of this encounter
--- OUTSIDE RECORDS SUMMARY | 2024-12-17 13:13 | XMS_ITS ---
Care Plan - [facility] Created on: December 17, 2024 CONNER KONG : 1970 Sex: Female Author Organization [facility] Address [address] [place] [address] Phone Care Team Providers Care Janitor Caretaker Name Role Phone CY PETERSON, DESTIN C Unavailable [phone] MADDIE CARRASCO Primary Care Provider [phone]
--- OUTSIDE RECORDS SUMMARY | 2024-12-17 13:13 | XMS_ITS | Clinical Summary ---
Author Organization [facility] Address [address] [place] [address] Phone Care Team Providers Care Players Club Representative Name Role Phone DESTIN BENOIT MD Unavailable [phone] MADDIE CARRASCO Primary Care Provider [phone] Reason for Visit and Chief Complaint NO SHOW Problems Includes: Problems addressed during this encounter and other active Problems All Visits Onset Date Resolved Date Provider Condition S tatus Gynecologic Services Intrauterine Device (Iud) Checking 10/27/2017 DESTIN BENOIT MD Active Last Documented On 10/27/2017 2:56PM ; [facility] Note: Unchanged Urge and Stress Incontinence 10/27/2017 DESTIN BENOIT MD Active Last Documented On 10/27/2017 2:56PM ; [facility] Note: Unchanged Plan of Treatment No [...] On 0 3:29PM By EMILY BURGESS ; [facility] omprezole 20mg 30 Oral Capsule 07/13/2019 Provider: Diagnosis: Last Documented On 9 2:36PM By PAULA SOUZA LPN ; [facility] Mirena (52 MG) 20 MCG/24HR Intrauterine Intraute rine device 07/13/2019 Provider: Diagnosis: Last Documented On 0 3:54PM By SURI PRESTON ; [facility] Propranolol HCl 40MG Oral Tablet 11/23/2018 Provider : Diagnosis: Last Documented On 9 2:42PM By EMILY BURGESS ; [facility] Metoclopramide HCl 5MG Oral Tablet 11/23/2018 Provid er: Diagnosis: prn Last Documented On 9 2:43PM By EMILY BURGESS ; [facility] ClonazePAM 0.5MG Oral Tablet 10/27/2017 Provider: Diagnosis: Last Documented On 8 1:52PM By EMILY BURGESS ; [facility] Gabapentin 600MG Oral Tablet 10/27/2017 Provider: Diagnosis: Last Documented On 8 1:52PM By EMILY BURGESS ; [facility] Wellbutrin SR 150MG Oral Tablet Extended Release 12 Ho ur 10/27/2017 Provider: Diagnosis: bid Last Documented On 8 1:53PM By EMILY BURGESS ; [facility] Venlafaxine HCl ER 150MG Oral Capsule Extended R elease 24 Hour 10/27/2017 Provider: Diagnosis: bid Last Documented On 8 1:53PM By EMILY BURGESS ; [facility] LamoTRIgine 100MG Oral Tablet 10/27/2017 Provider: Diagnosis: Last Documented On 8 1:54PM By EMILY BURGESS ; [facility] Medications Administered Includes: Administered [...] Active Last Documented On 0 11:12AM ; [facility] COMPAZINE Allergy 10/27/2017 Active Last Documented On 0 11:12AM ; [facility] Amoxicillin Allergy 10/27/2017 Active Last Documented On 0 11:12AM ; [facility] Encounters Encounter Provider Location Date Check-In Time Check-Out Time Diagnosis NO SHOW SURI STONE RN [facility] 10/14/2022 1:36PM 11:59PM Insurance Includes: Active Insurance Policies Plan Name Member ID Group # Subscriber Relationship Effect rhys Dates 1 - [facility] [id number] CONNER KONG Self Clinical Notes Includes: Clinical Notes from this encounter No Clinical Notes Recorded
--- OUTSIDE RECORDS SUMMARY | 2024-12-17 13:13 | XMS_ITS | Clinical Summary ---
Author Organization [facility] Address [address] [address] Phone Care Team Providers Care Thread Milling Machine Set Up Operator Name Role Phone Susan Plasencia MD Primary Care Provider [phone] Allergies Active Allergy Reactions Criticality Noted Date Comments Amoxicillin Hives 11/06/2015 Prochlorperazine Maleate Other (see Comments) 11/06/2015 feels like bugs are crawling on her skin Iodinated Contrast Media Other (see Comments) 11/06/2015 seizures Dihydroergotamine Other (see Comments) High Reaction: almost like a heart attack, Metrizamide Other (see Comments) Low 11/06/2015 seizures Pramipexole Dihydrochloride Other (see Comments) 02/13/2017 Caused her to shake Other Other (see Comments) 02/19/2017 DHE 45-caused a mild heart attack Potassium Other (see Comments) Reaction: Unknown, Prochlorperazine Unknown Medications buPROPion SR (WELLBUTRIN SR) 150 MG TABLET SR 12 HR 1 tab BID 3 6 Active Meloxicam 15 MG Tablet Take 15 mg by mouth daily as needed. Once daily 1 5 Active omeprazole (PRILOSEC) 40 MG CAPSULE DELAYED RELEASE Take 40 mg by mouth daily. Active Levonorgestrel 20 MCG/24HR IUD by Intrauterine route. Active Cholecalciferol (VITAMIN D) 2000 units Capsule Take by mouth. Activ e clonazePAM (KLONOPIN) 0.5 MG Tablet 2 8 Active clonazePAM (KLONOPIN) 1 MG Tablet Take 0.5 mg by mouth as needed. 2 8 Active Ibuprofen 200 MG Capsule take 3 capsule by oral route every 6 hours as needed 6 Active mometasone (NASONEX) 50 MCG/ACT Suspension Two puffs one time per day 8 Active venlafaxine (EFFEXOR) 100 MG Tablet Take 200 mg by mouth daily. 2 8 Active lamoTRIgine (LAMICTAL) 100 MG Tablet TK 1 T PO BID 2 8 Active metoclopramide (REGLAN) 5 MG Tablet Take 1 Tab by mouth 3 times daily as needed for Nausea - 1st line (Migraine onset). 30 Tab 3 9 Active Additional Information Patient not taking.Reported on 07/13/2019 mupirocin (BACTROBAN) 2 % Ointment MARIO SML AMT EXT AA BID 0 9 Active propranolol (INDERAL) 40 MG Tablet TAKE 1 TABLET BY MOUTH TWICE DAILY 60 Tab 3 0 Active gabapentin (NEURONTIN) 300 MG CapsuleIndicati ons:RLS (restless legs syndrome) TAKE 2 CAPSULES BY MOUTH EVERY NIGHT 60 Cap 3 0 Active Active Problems Problem Noted Date Diagnosed Date Fatigue 10/26/2018 Migraine with aura and witho ut status migrainosus, not intractable 10/22/2018 Tremor 11/10/2017 MANUEL (obstructive sleep apnea) 04/14/2017 RLS (restless legs syndrome) 11/06/2015 PLMD (periodic limb movement disorder) 6 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 Family History Medical History Relation Name Comments Diabetes Brother Diabetes Father mother Hypertension Father mother Hypothyroidism Father mother brother Renal Failure Father mother on dialysis Diabetes Mother Obstructive Sleep Apnea Mother brot her Relation Name Status Comments Brother Father mother Mother Social History Tobacco Use Types Packs/Day Years Used Date Smoking Tobacco: Never Smokeless Tobacco: Never Tobacco Cessation:Counseling Given: No Alcohol Use Standard Drinks/Week Comments No 0 [...] file Not on file Not on file Last Filed Vital Signs Vital Sign Reading Time Taken Comments Blood Pressure 120/80 07/13/2019 9:13 AM FARM OPERATOR Pulse 71 07/13/2019 9:13 AM FARM OPERATOR Temperature 36.7 C (98 F) 07/13/2019 9:13 AM FARM OPERATOR Respiratory Rate 16 07/13/2019 9:13 AM FARM OPERATOR Oxygen Saturation 96% 07/13/2019 9:13 AM FARM OPERATOR Inhaled Oxygen Concentration - - Weight 89.4 kg (197 lb 3.2 oz) 07/13/2019 9:13 A M FARM OPERATOR Height 154.9 cm (5' 1 ) 07/13/2019 9:13 AM FARM OPERATOR Body Mass Index 37.26 07/13/2019 9:13 AM FARM OPERATOR Plan of Treatment Health Maintenance Due Date Last Done Comments Hepatitis C Virus (HCV) Screening 1972 Hepatitis B Immunization (1 of 3 - 19+ 3-dose series) 1991 Colonoscopy 2017 Colorectal Cancer Screening 2017 Cologuard 2022 Immunochemical Fecal Occult Blood 2022 Pneumococcal Immunization (50+ years) (1 of 1 - PCV) 2022 Zoster Immunization (1 of 2) 2022 Influenza Immunization (#1) 04/24/202406/24, 05/11/2017, 05/09/2016, Additional history exists SARS-COV-2 Immunization ( season) 2024 Respiratory Syncytial Virus (RSV) Immunization (Adult) (1 - 1-dose 75+ series) 2047 DTaP/Tdap/Td Immunization Discontinued 02/19/2018, TdaP Immunization Completed 02/19/2018, 02/07/2016 Discussion re Starting/Frequency of Mammograms Discontinued 05/18/2019, 09/06/2018, 04/05/2018, Additional history exists Mammogram Discontinued 05/18/2019, 03/17/2018 Meningococcal Immunization (ACWY) Aged Out No longer eligible based on patient's age to complete this topic Rotavirus Immunization Aged Out No lo nger eligible based on patient's age to complete this topic Procedures Procedure Name Priority Date/Time Associated Diagnosis Comments PAPI DIAG BILATERAL DIGITAL W CAD W ABRAHAM Routine 05/18/2019 10:29 AM CDT Other abnormal and inconclusive findings on diagnostic imaging of breast from Last 3 Months or Most Recently Relevant to Health Maintenance Results * PAPI DIAG BILATERAL DIGITAL W CAD W ABRAHAM (05/18/2019 10:29 AM CDT) Anatomical Region Laterality Modality breast Bilateral Mammography 05/18/2019 9:47 AM CDT Narrative 05/18/2019 12:39 PM CDT - PAPI DIAG BILATERAL DIGITAL W CAD W ABRAHAM BILATERAL DIGITAL DIAGNOSTIC MAMMOGRAM 3D/2D WITH CAD WITH MEDIOLATERAL OBLIQUE CRANIOCAUDAL: 05/18/2019 The study was acquired using digital technology and interpreted from soft copy. Current study was also evaluated with Mapidy version 7.2. CLINICAL: Diagnostic study. Patient returns for a 6 month follow-up asymmetry upper outer left breast. Patient is now due for her annual. COMPARISONS: [facility]. BREAST TISSUE:There are scattered fibroglandular densities in both breasts. FINDINGS: The asymmetric density in upper outer left breast, middle 3rd is stable. This is likely asymmetric breast tissue and will continue to be classified as probably benign. No other significant masses, calcifications, or other findings are seen in the breast. IMPRESSION: BI-RAD 3 PROBABLY BENIGN A follow-up mammogram in 12 months is recommended. The patient has been or will be contacted. Electronically signed by: Corby Nelson M.D. ll/:05/18/2019 10:28:50 Head Of Mobile: Sandra Dale)([place]), [facility] letter sent: Birad 3 Followup Reading location: [facility] BI-RADS: 3 Probably benign Procedure Note Corby Nelson MD - 05/18/2019 - PAPI DIAG BILATERAL DIGITAL W CAD W ABRAHAM BILATERAL DIGITAL DIAGNOSTIC MAMMOGRAM 3D/2D WITH CAD WITH MEDIOLATERAL OBLIQUE CRANIOCAUDAL: 05/18/2019 The study was acquired using digital technology and interpreted from soft copy. Current study was also evaluated with ICAD version 7.2. CLINICAL: Diagnostic study. Patient returns for a 6 month follow-up asymmetry upper outer left breast. Patient is now due for her annual. COMPARISONS: Comparison is made to exams dated: 03/17/2018 [facility] and 10/14/2016 [facility]. BREAST TISSUE:There are scattered fibroglandular densities in both breasts. FINDINGS: The asymmetric density in upper outer left breast, middle 3rd is stable. This is likely asymmetric breast tissue and will continue to be classified as probably benign. No other significant masses, calcifications, or other findings are seen in the breast. IMPRESSION: BI-RAD 3 PROBABLY BENIGN A follow-up mammogram in 12 months is recommended. The patient has been or will be contacted. Electronically signed by: Corby Nelson M.D. ll/:05/18/2019 10:28:50 Head Of Mobile: Sandra Dale)([place]), [facility] letter sent: Birad 3 Followup Reading location: [facility] BI-RADS: 3 Probably benign Susan Plasencia MD IMG MAMMO ORDERABLES Final Re sult from Last 3 Months or Most Recently Relevant to Health Maintenance Insurance MEDICAID [employer] Care Teams Thread Milling Machine Set Up Operator Relationship Specialty Start Date End Date Susan Plasencia MD [address] [place] [address] PCP - General Internal Medicine 09/19/15
--- OUTSIDE RECORDS SUMMARY | 2024-12-17 13:13 | XMS_ITS | Clinical Summary ---
Author Organization [facility] Address [address] [place] [address] Phone Care Team Providers Care Electric Meter Inspector Name Role Phone DESTIN BENOIT MD Unavailable [phone] MADDIE CARRASCO Primary Care Provider [phone] Reason for Visit and Chief Complaint WELL WOMAN EXAM Problems Includes: Problems addressed during this encounter and other active Problems All Visits Onset Date Resolved Date Provider Condition S tatus Gynecologic Services Intrauterine Device (Iud) Checking 10/27/2017 DESTIN BENOIT MD Active Last Documented On 10/27/2017 2:56PM ; [facility] Note: Unchanged Urge and Stress Incontinence 10/27/2017 DESTIN BENOIT MD Active Last Documented On 10/27/2017 2:56PM ; [facility] Note: Unchanged Plan of Treatment No [...] 0 11:12AM ; [facility] Amoxicillin Allergy 10/27/2017 Active Last Documented On 0 11:12AM ; [facility] Insurance Includes: Active Insurance Policies Plan Name Member ID Group # Subscriber Relationship Effect rhys Dates 1 - [facility] [id number] CONNER KONG Self Clinical Notes Includes: Clinical Notes from this encounter No Clinical Notes Recorded
--- OUTSIDE RECORDS SUMMARY | 2024-12-17 13:13 | XMS_ITS | Clinical Summary ---
Author Organization [facility] Address [address] [place] [address] Phone Care Team Providers Care Stitching Department Supervisor Name Role Phone DESTIN BENOIT MD Unavailable [phone] MADDIE CARRASCO Primary Care Provider [phone] Reason for Visit and [...] Active Last Documented On 10/27/2017 2:56PM ; [facility] Note: Unchanged Urge and Stress Incontinence 10/27/2017 DESTIN BENOIT MD Active Last Documented On 10/27/2017 2:56PM ; [facility] Note: Unchanged Plan of Treatment - Weight loss diet - Last Documented On 07/30/2020 4:11PM ; [facility] - Clinical summary provided to patient - Last Documented On 07/30/2020 4:11PM ; [facility] PT TO CALL WITH ANY CHANGE IN STATUS ALL QUESTIONS ANSWERED WITH UNDERSTANDING VERBALIZED BY PT. - Last Documented On 07/30/2020 4:11PM ; [facility] Instructions to patient Instructed to call if excess rhys bleeding or abdominal/pelvic pain Last Documented On 0 3:54PM ; [facility] Instructions For Patient: Mo nthly Self Breast Exam Last Documented On 0 3:54PM ; [facility] Recommend diet and exercise at least 30 min three times per week Last Documented On 0 3:54PM ; [facility] Education and Decision Aids were provided during visit for: Patient education RE: shalom kumar signals associated with hormonal contraceptive use including abdominal, chest, or leg pain, headaches or visual disturbances Last Documented On 0 3:54PM ; [facility] Patient Education: Daily irwin cium and vitamin D Last Documented On 0 3:54PM ; [facility] Assessments Includes: Assessments from this encounter Findings - NORMAL FEMALE EXAM - Last Documented On 07/30/2020 4:11PM ; [facility] - Screen malignant neoplasm cervix - Last Documented On 07/30/2020 4:11PM ; [facility] Instructions Includes: Instructions from this encounter Instructions to patient Instructed to call if excess rhys bleeding or abdominal/pelvic pain Last Documented On 0 3:54PM ; [facility] Instructions For Patient: Mo nthly Self Breast Exam Last Documented On 0 3:54PM ; [facility] Recommend diet and exercise at least 30 min three times per week Last Documented On 0 3:54PM ; [facility] Education and Decision Aids were provided during visit for: Patient education RE: lorenaerika josé signals associated with hormonal contraceptive use including abdominal, chest, or leg pain, headaches or visual disturbances Last Documented On 0 3:54PM ; [facility] Patient Education: Daily irwin cium and vitamin D Last Documented On 0 3:54PM ; [facility] Medical Equipment - Implanted Devices Includes: Current Devices No Medical Equipment Recorded Medications Includes: Medications discussed during this encounter and other current Medications Current Medications (continue as prescribed) ZyrTEC Allergy 10 MG Oral Tablet 07/30/2020 Provider : Diagnosis: Last Documented On 0 3:29PM By EMILY BURGESS ; [facility] omprezole 20mg 30 Oral Capsule 07/13/2019 Provider: Diagnosis: Last Documented On 9 2:36PM By PAULA SOUZA LPN ; [facility] Mirena (52 MG) 20 MCG/24HR Intrauterine Intraute rine device 07/13/2019 Provider: Diagnosis: Last Documented On 0 3:54PM [facility] ; [facility] Propranolol HCl 40MG Oral Tablet 11/23/2018 Provider : Diagnosis: Last Documented On 9 2:42PM By EMILY BURGESS ; [facility] Metoclopramide HCl 5MG Oral Tablet 11/23/2018 Provid er: Diagnosis: prn Last Documented On 9 2:43PM By EMILY BURGESS ; [facility] ClonazePAM 0.5MG Oral Tablet 10/27/2017 Provider: Diagnosis: Last Documented On 8 1:52PM By EMILY BURGESS ; [facility] Gabapentin 600MG Oral Tablet 10/27/2017 Provider: Diagnosis: Last Documented On 8 1:52PM By EMILY BURGESS ; [facility] Wellbutrin SR 150MG Oral Tablet Extended Release 12 Ho ur 10/27/2017 Provider: Diagnosis: bid Last Documented On 8 1:53PM By EMILY BURGESS ; [facility] Venlafaxine HCl ER 150MG Oral Capsule Extended R elease 24 Hour 10/27/2017 Provider: Diagnosis: bid Last Documented On 8 1:53PM By EMILY BURGESS ; [facility] LamoTRIgine 100MG Oral Tablet 10/27/2017 Provider: Diagnosis: Last Documented On 8 1:54PM By EMILY BURGESS ; [facility] Medications Administered Includes: Administered Medications from this encounter No Administered Medications Recorded Vital Signs Includes: Vital Signs from this encounter Vital Name 07/30/2020 03:20P Blood Pressure Sitting (mmHg) 110/70 Temp-Oral (F) 97.9 Height (in) 60.25 Weight (lb) 214.5 Body Mass Index (kg/m2) 41.5 Body Surface Area (m2) 1.9 Last Documented: On 07/30/2020 3:26PM ; [facility] Results Includes: Results discussed [...] 07/30/2020 Last Documented On 0 4:11PM ; [facility] The most recent IUD was inserted: 201809/30/2019 Last Documented On 0 3:19PM ; [facility] Not using drugs 11/23/2018 Last Documented On 0 3:19PM ; [facility] Smoking status : Never smoker 11/23/2018 Last Documented On 0 3:19PM ; [facility] Alcohol use 1-2 drinks a year 10/27/2017 Last Documented On 0 3:19PM ; [facility] In monogamous relationship 10/27/2017 Last Documented On 0 3:19PM ; [facility] Marital history 10/27/2017 Last Documented On 0 3:19PM ; [facility] Not exercising regularly 10/27/2017 Last Documented On 0 3:19PM ; [facility] Sexually active with 1 partners in the l ast year 10/27/2017 Last Documented On 0 3:19PM ; [facility] Procedures and Surgical History Includes: Procedures from this encounter Procedures Code Diagnosis Performing Provider Service L ocation Service Date education and instructions Last Documented On 0 3:54PM ; [facility] explanation of plan pt to co ntaqct PCP regarding thyroid panel for weight gain concerns, as she just had serology draw which may have included this testing Last Documented On 0 4:09PM ; [facility] medical regimen review Last Documented On 0 3:54PM ; [facility] Discussed Contraception Last Documented On 0 3:54PM ; [facility] Urged Exercise and Diet , exercise at le ast 30 min three times per week Last Documented On 0 3:54PM ; [facility] cervical Pap smear 78677 Last Documented On 0 3:54PM ; [facility] FIT Test-Fecal Occult negative 03435 Last Documented On 0 3:54PM ; [facility] Surgical History Last Updated Surgical / procedural histor y Right fallopian tube and ovary removed because of enometriosis- TCK around 2008 [facility] ~Lump right breast- benign- at 20 years old ~C/S 12/21/07 TCK 10/27/2017 Last Documented On 0 3:19PM ; [facility] Medical History Includes: Medical History addressed during this encounter Description Last Updated A mammogram was performed 07/30/2020 Last Documented On 0 4:11PM ; [facility] LMP: 07/27/2020 and before that was 03/12 2007/30/2020 Last Documented On 0 4:11PM ; [facility] History of Pap smear done 11/23/201802/2020 Last Documented On 0 4:11PM ; [facility] History of screening mammogram was perfo rmed 09/06/2018 07/30/2020 Last Documented On 0 4:11PM ; [facility] Contraception: 07/13/19 jim nii of old mirena and insertion of new mirena; IUD this is the second one, done [place] [facility] [place] 201409/30/2019 Last Documented On 0 3:19PM ; [facility] Last pap smear date 11/23/2018 07/13/2019 Last Documented On 0 3:19PM ; [facility] Last mammogram date: 09/06/2018 9 Last Documented On 0 3:19PM ; [facility] chlamydia 2001 ~Bipolar ~Sleep apnea 01/2018 Last Documented On 0 3:19PM ; [facility] Result: normal 10/27/2017 Last Documented On 0 3:19PM ; [facility] Result: normal 10/27/2017 Last Documented On 0 3:19PM ; [facility] section x 1 10/27/2017 Last Documented On 0 3:19PM ; [facility] Vaginal delivery x 2 10/27/2017 Last Documented On 0 3:19PM ; [facility] Sexually active 10/27/2017 Last Documented On 0 3:19PM ; [facility] 3 10/27/2017 Last Documented On 0 3:19PM ; [facility] Para 3 10/27/2017 Last Documented On 0 3:19PM ; [facility] Family History Includes: Family History addressed during this encounter Description Last Updated Family history of malignant female breast neoplasm cousin double masectomy 10/27/2017 Last Documented On 0 3:19PM ; [facility] Fraternal history of diabetes mellitus b rother type 1 10/27/2017 Last Documented On 0 3:19PM ; [facility] Maternal aunt's history of m alignant female breast neoplasm maternal aunt from Breast ca ~ 10/27/2017 Last Documented On 0 3:19PM ; [facility] Maternal history of diabetes mellitus mo m type 2 10/27/2017 Last Documented On 0 3:19PM ; [facility] Maternal uncle's history of malignant neoplasm of large intestine Maternal uncle 10/27/2017 Last Documented On 0 3:19PM ; [facility] Paternal history of diabetes mellitus da d 10/27/2017 Last Documented On 0 3:19PM ; [facility] Paternal history of pure hypercholestero lemia dad 10/27/2017 Last Documented On 0 3:19PM ; [facility] Second child named 05/27/02 female 6# 10o z TCK 10/27/2017 Last Documented On 0 3:19PM ; [facility] First child named 02/16/01 male TCK 10/27 Last Documented On 0 3:19PM ; [facility] Third child named 12/21/07 male C/S 7# 7o z TCK 10/27/2017 Last Documented On 0 3:19PM ; [facility] Spouse name: Crow 10/27/2017 Last Documented On 0 3:19PM ; [facility] Family history of malignant neoplasm of the ovary cousin 10/27/2017 Last Documented On 0 3:19PM ; [facility] Hypertension 10/27/2017 Last Documented On 0 3:19PM ; [facility] Review of Systems Includes: Review of Systems [...] Active Last Documented On 0 11:12AM ; [facility] COMPAZINE Allergy 10/27/2017 Active Last Documented On 0 11:12AM ; [facility] Amoxicillin Allergy 10/27/2017 Active Last Documented On 0 11:12AM ; [facility] Encounters Encounter Provider Location Date Check-In Time Check-Out Time Diagnosis WELL WOMAN EXAM SURI STONE RN [facility] 07/30/20 20 3:00PM 4:10PM Normal Female Exam,Screen Malignant Neoplasm Cervix Insurance Includes: Active Insurance Policies Plan Name Member ID Group # Subscriber Relationship Effect rhys Dates - [facility] [id number] CONNER KONG Self Clinical Notes Includes: Clinical Notes from this encounter No Clinical Notes Recorded
--- OUTSIDE RECORDS SUMMARY | 2024-12-17 13:13 | XMS_ITS ---
Author Organization [facility] Address [address] [place] [address] Phone Care Team Providers Care Vice President [employer] Name Role Phone DESTIN BENOIT MD Unavailable [phone] MADDIE CARRASCO Primary Care Provider [phone] Problems Includes: Active, inactive, and resolved Problems All Visits Onset Date Resolved Date Provider Condition S tatus Gynecologic Services Intrauterine Device (Iud) Checking 10/27/2017 DESTIN BENOIT MD Active Last Documented On 10/27/2017 2:56PM ; [facility] Note: Unchanged Urge and Stress Incontinence 10/27/2017 DESTIN BENOIT MD Active Last Documented On 10/27/2017 2:56PM ; [facility] Note: Unchanged Plan of Treatment Findings Encounter Date Ordered Clinical summary pro vided to patient WELL WOMAN EXAM with SURI STONE RN STACI 07/30/2020 Last Documented On 0 4:11PM ; [facility] Ordered weight loss diet WELL WOMAN EXAM with IVETTE STONE RN STACI 07/30/2020 Last Documented On 0 4:11PM ; [facility] Cervix easily visualized , c ervix swabbed with Betadine PROCEDURE OFFICE with DESTIN BENOIT MD 07/13/2019 Last Documented On 9 3:10PM ; [facility] Wirer Helper removed. PROCEDURE OFFICE with DESTIN NATARAJAN MD 07/13/2019 Last Documented On 9 3:10PM ; [facility] IUD strings trimmed to 3-4 cm. PROCEDURE OFFICE with DESTIN BENOIT MD 07/13/2019 Last Documented On 9 3:10PM ; [facility] Mirena aerial applicator pilot introduced t hrough cervix to 5cm PROCEDURE OFFICE with DESTIN BENOIT MD 07/13/2019 Last Documented On 9 3:10PM ; [facility] Mirena aerial applicator pilot phlange posi tioned to 6 cm, also PROCEDURE OFFICE with DESTIN BENOIT MD 07/13/2019 Last Documented On 9 3:10PM ; [facility] Mirena released and aerial applicator pilot advanced to 6 cm PROCEDURE OFFICE with DESTIN BENOIT MD 07/13/2019 Last Documented On 9 3:10PM ; [facility] Patient tolerated procedure well PROCEDURE OFFIC E with DESTIN BENOIT MD 07/13/2019 Last Documented On 9 3:10PM ; [facility] Sterile speculum inserted PROCEDURE OFFICE with DESTIN BENOIT MD 07/13/2019 Last Documented On 9 3:10PM ; [facility] Tenaculum applied to anterior cervix. LA OCEDURE OFFICE with DESTIN BENOIT MD 07/13/2019 Last Documented On 9 3:10PM ; [facility] Tenaculum removed and pressu re applied to tenaculum sites with cotton swabs until hemostatis obtained. PROCEDURE OFFICE with DESTIN BENOIT MD 07/13/2019 Last Documented On 9 3:10PM ; [facility] Uterus sounded to 6 cm PROCEDURE OFFICE with DESTIN BENOIT MD 07/13/2019 Last Documented On 9 3:10PM ; [facility] She will let us know if she has other problems in the meantime ANNUAL SAFETY AIDE EXAM with DESTIN BENOIT MD 11/23/2018 Last Documented On 9 3:12PM ; [facility] Ordered follow-up visit 1 ye ar or as needed ANNUAL SAFETY AIDE EXAM with DESTIN BENOIT MD 11/23/2018 Last Documented On 9 3:12PM ; [facility] She will let us know if she has other problems in the meantime NEW MATERIAL DAMAGE ADJUSTER EXAM with DESTIN BENOIT MD 10/27/2017 Last Documented On 8 2:57PM ; [facility] Ordered follow-up visit 1 ye ar or as needed NEW MATERIAL DAMAGE ADJUSTER EXAM with DESTIN BENOIT MD 10/27/2017 Last Documented On 8 2:57PM ; [facility] Instructions to patient Instructed to call if excess rhys bleeding or abdominal/pelvic pain Last Documented On 0 3:54PM ; [facility] Instructions For Patient: Mo nthly Self Breast Exam Last Documented On 0 3:54PM ; [facility] Recommend diet and exercise at least 30 min three times per week Last Documented On 0 3:54PM ; [facility] Instructions for patient : B reast Self Exam discussed Last Documented On 9 2:56PM ; [facility] Instructions for patient : B reast Self Exam discussed Last Documented On 8 2:24PM ; [facility] Education and Decision Aids were provided during visit for: Patient education RE: shalom kumar signals associated with hormonal contraceptive use including abdominal, chest, or leg pain, headaches or visual disturbances Last Documented On 0 3:54PM ; [facility] Patient Education: Daily irwin cium and vitamin D Last Documented On 0 3:54PM ; [facility] STD screening offered and de clined Last Documented On 9 2:56PM ; [facility] Bone Mineral Density Screeni ng guidelines reviewed Last Documented On 9 2:56PM ; [facility] Patient Education: Daily irwin cium and vitamin D Last Documented On 9 2:56PM ; [facility] Patient Education: weight be aring exercise Last Documented On 9 2:56PM ; [facility] Colonoscopy screening guidel feng discussed Last Documented On 9 2:56PM ; [facility] STD screening offered and de clined Last Documented On 8 2:24PM ; [facility] Bone Mineral Density Screeni ng guidelines reviewed Last Documented On 8 2:24PM ; [facility] Colonoscopy screening guidel feng discussed Last Documented On 8 2:24PM ; [facility] Assessments Includes: Assessments for all patient encounters Findings Encounter Date NORMAL FEMALE EXAM WELL WOMAN EXAM with SURI STONE RN [facility] 07/30/2020 Last Documented On 0 4:11PM ; [facility] Screen malignant neoplasm cervix WELL WO MAN EXAM with SURI STONE RN [facility] 07/30/2020 Last Documented On 0 4:11PM ; [facility] Checking intrauterine device (IUD) 1 MONTH CHECK with DESTIN BENOIT MD 09/30/2019 Last Documented On 0 11:37AM ; [facility] Removal and reinsertion of i ntrauterine device (IUD) PROCEDURE OFFICE with DESTIN BENOIT MD 07/13/2019 Last Documented On 9 3:10PM ; [facility] Checking intrauterine device (IUD) ANNUAL SAFETY AIDE EX AM with DESTIN BENOIT MD 11/23/2018 Last Documented On 9 3:12PM ; [facility] Fibrocystic disease of breast ANNUAL SAFETY AIDE EXAM wi th DESTIN BENOIT MD 11/23/2018 Last Documented On 9 3:12PM ; [facility] NORMAL FEMALE EXAM ANNUAL SAFETY AIDE EXAM with DESTIN NATARAJAN MD 11/23/2018 Last Documented On 9 3:12PM ; [facility] Screening Malig. Neoplasm Rectum ANNUAL SAFETY AIDE EXAM with DESTIN BENOIT MD 11/23/2018 Last Documented On 9 3:12PM ; [facility] Checking intrauterine device (IUD) NEW MATERIAL DAMAGE ADJUSTER EXAM with DESTIN BENOIT MD 10/27/2017 Last Documented On 8 2:57PM ; [facility] Fibrocystic disease of breast NEW MATERIAL DAMAGE ADJUSTER EXAM with DESTIN BENOIT MD 10/27/2017 Last Documented On 8 2:57PM ; [facility] NORMAL FEMALE EXAM NEW MATERIAL DAMAGE ADJUSTER EXAM with DESTIN TAI MD 10/27/2017 Last Documented On 8 2:57PM ; [facility] Screening Malig. Neoplasm Rectum NEW MATERIAL DAMAGE ADJUSTER EXAM wi th DESTIN BENOIT MD 10/27/2017 Last Documented On 8 2:57PM ; [facility] Urge and stress incontinence NEW MATERIAL DAMAGE ADJUSTER EXAM with Kenisha BENOIT MD 10/27/2017 Last Documented On 8 2:57PM ; [facility] Instructions Includes: Instructions for all patient encounters Instructions to patient Instructed to call if excess rhys bleeding or abdominal/pelvic pain Last Documented On 0 3:54PM ; [facility] Instructions For Patient: Mo nthly Self Breast Exam Last Documented On 0 3:54PM ; [facility] Recommend diet and exercise at least 30 min three times per week Last Documented On 0 3:54PM ; [facility] Instructions for patient : B reast Self Exam discussed Last Documented On 9 2:56PM ; [facility] Instructions for patient : B reast Self Exam discussed Last Documented On 8 2:24PM ; [facility] Education and Decision Aids were provided during visit for: Patient education RE: shalom kumar signals associated with hormonal contraceptive use including abdominal, chest, or leg pain, headaches or visual disturbances Last Documented On 0 3:54PM ; [facility] Patient Education: Daily irwin cium and vitamin D Last Documented On 0 3:54PM ; [facility] STD screening offered and de clined Last Documented On 9 2:56PM ; [facility] Bone Mineral Density Screeni ng guidelines reviewed Last Documented On 9 2:56PM ; [facility] Patient Education: Daily irwin cium and vitamin D Last Documented On 9 2:56PM ; [facility] Patient Education: weight be aring exercise Last Documented On 9 2:56PM ; [facility] Colonoscopy screening guidel feng discussed Last Documented On 9 2:56PM ; [facility] STD screening offered and de clined Last Documented On 8 2:24PM ; [facility] Bone Mineral Density Screeni ng guidelines reviewed Last Documented On 8 2:24PM ; [facility] Colonoscopy screening guidel feng discussed Last Documented On 8 2:24PM ; [facility] Medical Equipment - Implanted Devices Includes: Current and historical Devices No Medical Equipment Recorded Medications Includes: Current and historical Medications Current Medications (continue as prescribed) ZyrTEC Allergy 10 MG Oral Tablet 07/30/2020 Provider : Diagnosis: Last Documented On 0 3:29PM By EMILY BURGESS ; [facility] omprezole 20mg 30 Oral Capsule 07/13/2019 Provider: Diagnosis: Last Documented On 9 2:36PM By PAULA SOUZA LPN ; [facility] Mirena (52 MG) 20 MCG/24HR Intrauterine Intraute rine device 07/13/2019 Provider: Diagnosis: Last Documented On 0 3:54PM By SURI MEDEIROS ; [facility] Propranolol HCl 40MG Oral Tablet 11/23/2018 Provider : Diagnosis: Last Documented On 9 2:42PM By EMILY BURGESS ; [facility] Metoclopramide HCl 5MG Oral Tablet 11/23/2018 Provid er: Diagnosis: prn Last Documented On 9 2:43PM By EMILY BURGESS ; [facility] ClonazePAM 0.5MG Oral Tablet 10/27/2017 Provider: Diagnosis: Last Documented On 8 1:52PM By EMILY BURGESS ; [facility] Gabapentin 600MG Oral Tablet 10/27/2017 Provider: Diagnosis: Last Documented On 8 1:52PM By EMILY BURGESS ; [facility] Wellbutrin SR 150MG Oral Tablet Extended Release 12 Ho ur 10/27/2017 Provider: Diagnosis: bid Last Documented On 8 1:53PM By EMILY BURGESS ; [facility] Venlafaxine HCl ER 150MG Oral Capsule Extended R elease 24 Hour 10/27/2017 Provider: Diagnosis: bid Last Documented On 8 1:53PM By EMILY BURGESS ; [facility] LamoTRIgine 100MG Oral Tablet 10/27/2017 Provider: Diagnosis: Last Documented On 8 1:54PM By EMILY BURGESS ; [facility] Past Medications on file Diflucan 150MG Oral Tablet 03/09/2018 - 07/13/2019 Pro vider: DESTIN BENOIT MD Diagnosis: as directed one tablet po, prn yeast infection Last Documented On 9 2:35PM By PAULA SOUZA LPN ; [facility] Medications Administered Includes: Administered Medications in patient's chart No Administered Medications Recorded Results Includes: Results from 12/18/2023 through 12/17/2024 No Results Recorded For Specified Dates History of Present Illness History of Present Illness not supported for this document type No History of Present Illness Recorded Social History Description Last Updated Sexually active 07/30/2020 Last Documented On 0 4:11PM ; [facility] The most recent IUD was inserted: 201809/30/2019 Last Documented On 0 11:37AM ; [facility] Not using drugs 11/23/2018 Last Documented On 9 3:12PM ; [facility] Smoking status : Never smoker 11/23/2018 Last Documented On 9 3:12PM ; [facility] Alcohol use 1-2 drinks a year 10/27/2017 Last Documented On 8 2:57PM ; [facility] In monogamous relationship 10/27/2017 Last Documented On 8 2:57PM ; [facility] Marital history 10/27/2017 Last Documented On 8 2:57PM ; [facility] Not exercising regularly 10/27/2017 Last Documented On 8 2:57PM ; [facility] Sexually active with 1 partners in the l ast year 10/27/2017 Last Documented On 8 2:57PM ; [facility] Procedures and Surgical History Surgical History Last Updated Surgical / procedural histor y Right fallopian tube and ovary removed because of enometriosis- TCK around 2008 [facility] ~Lump right breast- benign- at 20 years old ~C/S 12/21/07 TCK 10/27/2017 Last Documented On 8 2:57PM ; [facility] Medical History Includes: Medical History in patient's chart Description Last Updated A mammogram was performed 07/30/2020 Last Documented On 0 4:11PM ; [facility] LMP: 07/27/2020 and before that was 03/12 2007/30/2020 Last Documented On 0 4:11PM ; [facility] History of Pap smear done 11/23/201802/2020 Last Documented On 0 4:11PM ; [facility] History of screening mammogram was perfo rmed 09/06/2018 07/30/2020 Last Documented On 0 4:11PM ; [facility] Contraception: 07/13/19 jim nii of old mirena and insertion of new mirena; IUD this is the second one, done in [place] at [facility] 201409/30/2019 Last Documented On 0 11:37AM ; [facility] Last pap smear date 11/23/2018 07/13/2019 Last Documented On 9 3:10PM ; [facility] Last mammogram date: 09/06/2018 9 Last Documented On 9 3:12PM ; [facility] chlamydia 2001 ~Bipolar ~Sleep apnea 01/2018 Last Documented On 8 2:57PM ; [facility] Result: normal 10/27/2017 Last Documented On 8 2:57PM ; [facility] Result: normal 10/27/2017 Last Documented On 8 2:57PM ; [facility] section x 1 10/27/2017 Last Documented On 8 2:57PM ; [facility] Vaginal delivery x 2 10/27/2017 Last Documented On 8 2:57PM ; [facility] Sexually active 10/27/2017 Last Documented On 8 2:57PM ; [facility] 3 10/27/2017 Last Documented On 8 2:57PM ; [facility] Para 3 10/27/2017 Last Documented On 8 2:57PM ; [facility] Family History Includes: Family History in patient's chart Description Last Updated Family history of malignant female breast neoplasm cousin double masectomy 10/27/2017 Last Documented On 8 2:57PM ; [facility] Fraternal history of diabetes mellitus b rother type 1 10/27/2017 Last Documented On 8 2:57PM ; [facility] Maternal aunt's history of m alignant female breast neoplasm maternal aunt from Breast ca ~ 10/27/2017 Last Documented On 8 2:57PM ; [facility] Maternal history of diabetes mellitus mo m type 2 10/27/2017 Last Documented On 8 2:57PM ; [facility] Maternal uncle's history of malignant neoplasm of large intestine Maternal uncle 10/27/2017 Last Documented On 8 2:57PM ; [facility] Paternal history of diabetes mellitus da d 10/27/2017 Last Documented On 8 2:57PM ; [facility] Paternal history of pure hypercholestero lemia dad 10/27/2017 Last Documented On 8 2:57PM ; [facility] Second child named 05/27/02 female 6# 10o z TCK 10/27/2017 Last Documented On 8 2:57PM ; [facility] First child named 02/16/01 male TCK 10/27 Last Documented On 8 2:57PM ; [facility] Third child named 12/21/07 male C/S 7# 7o z TCK 10/27/2017 Last Documented On 8 2:57PM ; [facility] Spouse name: Crow 10/27/2017 Last Documented On 8 2:57PM ; [facility] Family history of malignant neoplasm of the ovary cousin 10/27/2017 Last Documented On 8 2:57PM ; [facility] Hypertension 10/27/2017 Last Documented On 8 2:57PM ; [facility] Review of Systems Review of Systems not supported for this document type No Review of Systems Recorded Mental Status No Mental Status Recorded Functional Status No Functional Status Recorded Physical Exam Physical Exam not supported for this document type No Physical Exam Recorded Allergies Includes: Active, inactive, and resolved Allergies Substance Type Reaction Onset Date Resolved Date Statu s Iodine Allergy 10/27/2017 Active Last Documented On 0 11:12AM ; [facility] Allergy 10/27/2017 Active Last Documented On 0 11:12AM ; [facility] Amoxicillin Allergy 10/27/2017 Active Last Documented On 0 11:12AM ; [facility] Insurance Includes: Active Insurance Policies Plan Name Member ID Group # Subscriber Relationship Effect rhys Dates 1 - [facility] [id number] CONNER KONG Self Clinical Notes Includes: Signed Clinical Notes starting from 09/12/2022 No Clinical Notes Recorded
--- OUTSIDE RECORDS SUMMARY | 2024-12-17 13:13 | XMS_ITS | Clinical Summary ---
Author Organization [facility] Address [address] [place] [address] Phone Care Team Providers Care Superintendent Transportation Name Role Phone DESTIN BENOIT MD Unavailable [phone] MADDIE CARRASCO Primary Care Provider [phone] Reason for Visit and Chief Complaint WELL WOMAN EXAM Problems Includes: Problems addressed during this encounter and other active Problems All Visits Onset Date Resolved Date Provider Condition S tatus Gynecologic Services Intrauterine Device (Iud) Checking 10/27/2017 DESTIN BENOIT MD Active Last Documented On 10/27/2017 2:56PM ; [facility] Note: Unchanged Urge and Stress Incontinence 10/27/2017 DESTIN BENOIT MD Active Last Documented On 10/27/2017 2:56PM ; [facility] Note: Unchanged Plan of Treatment No Plan [...] On 0 3:29PM By EMILY BURGESS ; [facility] omprezole 20mg 30 Oral Capsule 07/13/2019 Provider: Diagnosis: Last Documented On 9 2:36PM By PAULA SOUZA LPN ; [facility] Mirena (52 MG) 20 MCG/24HR Intrauterine Intraute rine device 07/13/2019 Provider: Diagnosis: Last Documented On 0 3:54PM By SURI PRESTON ; [facility] Propranolol HCl 40MG Oral Tablet 11/23/2018 Provider : Diagnosis: Last Documented On 9 2:42PM By EMILY BURGESS ; [facility] Metoclopramide HCl 5MG Oral Tablet 11/23/2018 Provid er: Diagnosis: prn Last Documented On 9 2:43PM By EMILY BURGESS ; [facility] ClonazePAM 0.5MG Oral Tablet 10/27/2017 Provider: Diagnosis: Last Documented On 8 1:52PM By EMILY BURGESS ; [facility] Gabapentin 600MG Oral Tablet 10/27/2017 Provider: Diagnosis: Last Documented On 8 1:52PM By EMILY BURGESS ; [facility] Wellbutrin SR 150MG Oral Tablet Extended Release 12 Ho ur 10/27/2017 Provider: Diagnosis: bid Last Documented On 8 1:53PM By EMILY BURGESS ; [facility] Venlafaxine HCl ER 150MG Oral Capsule Extended R elease 24 Hour 10/27/2017 Provider: Diagnosis: bid Last Documented On 8 1:53PM By EMILY BURGESS ; [facility] LamoTRIgine 100MG Oral Tablet 10/27/2017 Provider: Diagnosis: Last Documented On 8 1:54PM By EMILY BURGESS ; [facility] Medications Administered Includes: Administered Medications [...] Active Last Documented On 0 11:12AM ; [facility] COMPAZINE Allergy 10/27/2017 Active Last Documented On 0 11:12AM ; [facility] Amoxicillin Allergy 10/27/2017 Active Last Documented On 0 11:12AM ; [facility] Insurance Includes: Active Insurance Policies Plan Name Member ID Group # Subscriber Relationship Effect rhys Dates 1 - [facility] [id number] CONNER KONG Self Clinical Notes Includes: Clinical Notes from this encounter No Clinical Notes Recorded
--- OUTSIDE RECORDS SUMMARY | 2024-12-17 13:13 | XMS_ITS | Encounter Summary ---
Author Organization [facility] Address [address] [place] [address] Phone Care Team Providers Care Recreational Resort Manager Name Role Phone Suasn Plasencia MD Primary Care Provider [phone] William Meier MD Unavailable [phone] Reason for Visit * Reason Comments Medication Refill Encounter Details Date Type Department Care Team (Late st Contact Info) Description 06/12/2020 Refill [facility] - Neurology [facility] [address] [place] [address] William Meier MD [address] [place] [address] Medication Refill Social History Tobacco [...] (RLS) documented in this encounter Care Teams Recreational Resort Manager Relationship Specialty Start Date End Date Susan Plasencia MD [address] [place] [address] PCP - General Internal Medicine 09/19/15 William Meier MD [address] [place] [address] Consulting Physician Neurology 02/19/17 07/10/24 documented as of this encounter
--- OUTSIDE RECORDS SUMMARY | 2024-12-17 13:13 | XMS_ITS | Encounter Summary ---
Author Organization [facility] Address [address] [place] [address] Phone Care Team Providers Care Leisure Studies Professor Name Role Phone Susan Plasencia MD Primary Care Provider [phone] William Meier MD Unavailable [phone] Reason for Visit * Reason Comments Medication Refill Encounter Details Date Type Department Care Team (Late st Contact Info) Description 09/15/2020 Refill [facility] - Neurology [facility] [address] [place] [address] William Meier MD [address] [place] [address] Medication Refill Social History Tobacco [...] on filedocumented in this encounter Care Teams Leisure Studies Professor Relationship Specialty Start Date End Date Susan Plasencia MD [address] [place] [address] PCP - General Internal Medicine 09/19/15 William Meier MD [address] [place] [address] Consulting Physician Neurology 02/19/17 07/10/24 documented as of this encounter
--- OUTSIDE RECORDS SUMMARY | 2024-12-17 13:13 | XMS_ITS | Clinical Summary ---
Author Organization [facility] Address [address] [place] [address] Phone Care Team Providers Care It Administrator Name Role Phone DESTIN BENOIT MD Unavailable [phone] MADDIE CARRASCO Primary Care Provider [phone] Reason for Visit and Chief Complaint WELL WOMAN EXAM Problems Includes: Problems addressed during this encounter and other active Problems All Visits Onset Date Resolved Date Provider Condition S tatus Gynecologic Services Intrauterine Device (Iud) Checking 10/27/2017 DESTIN BENOIT MD Active Last Documented On 10/27/2017 2:56PM ; [facility] Note: Unchanged Urge and Stress Incontinence 10/27/2017 DESTIN BENOIT MD Active Last Documented On 10/27/2017 2:56PM ; [facility] Note: Unchanged Plan of Treatment No [...] On 0 3:29PM By EMILY BURGESS ; [facility] omprezole 20mg 30 Oral Capsule 07/13/2019 Provider: Diagnosis: Last Documented On 9 2:36PM By PAULA SOUZA LPN ; [facility] Mirena (52 MG) 20 MCG/24HR Intrauterine Intraute rine device 07/13/2019 Provider: Diagnosis: Last Documented On 0 3:54PM By SURI PRESTON ; [facility] Propranolol HCl 40MG Oral Tablet 11/23/2018 Provider : Diagnosis: Last Documented On 9 2:42PM By EMILY BURGESS ; [facility] Metoclopramide HCl 5MG Oral Tablet 11/23/2018 Provid er: Diagnosis: prn Last Documented On 9 2:43PM By EMILY BURGESS ; [facility] ClonazePAM 0.5MG Oral Tablet 10/27/2017 Provider: Diagnosis: Last Documented On 8 1:52PM By EMILY BURGESS ; [facility] Gabapentin 600MG Oral Tablet 10/27/2017 Provider: Diagnosis: Last Documented On 8 1:52PM By EMILY BURGESS ; [facility] Wellbutrin SR 150MG Oral Tablet Extended Release 12 Ho ur 10/27/2017 Provider: Diagnosis: bid Last Documented On 8 1:53PM By EMILY BURGESS ; [facility] Venlafaxine HCl ER 150MG Oral Capsule Extended R elease 24 Hour 10/27/2017 Provider: Diagnosis: bid Last Documented On 8 1:53PM By EMILY BURGESS ; [facility] LamoTRIgine 100MG Oral Tablet 10/27/2017 Provider: Diagnosis: Last Documented On 8 1:54PM By EMILY BURGESS ; [facility] Medications Administered Includes: [...] Active Last Documented On 0 11:12AM ; [facility] COMPAZINE Allergy 10/27/2017 Active Last Documented On 0 11:12AM ; [facility] Amoxicillin Allergy 10/27/2017 Active Last Documented On 0 11:12AM ; [facility] Insurance Includes: Active Insurance Policies Plan Name Member ID Group # Subscriber Relationship Effect rhys Dates 1 - [facility] [id number] CONNER KONG Self Clinical Notes Includes: Clinical Notes from this encounter No Clinical Notes Recorded
--- OUTSIDE RECORDS SUMMARY | 2024-12-17 13:13 | XMS_ITS | Clinical Summary ---
Author Organization [facility] Address [address] [place] [address] Phone Care Team Providers Care Charge Operator Name Role Phone DESTIN BENOIT MD Unavailable [phone] MADDIE CARRASCO Primary Care Provider [phone] Reason for Visit and Chief Complaint WELL WOMAN EXAM Problems Includes: Problems addressed during this encounter and other active Problems All Visits Onset Date Resolved Date Provider Condition S tatus Gynecologic Services Intrauterine Device (Iud) Checking 10/27/2017 DESTIN BENOIT MD Active Last Documented On 10/27/2017 2:56PM ; [facility] Note: Unchanged Urge and Stress Incontinence 10/27/2017 DESTIN BENOIT MD Active Last Documented On 10/27/2017 2:56PM ; [facility] Note: Unchanged Plan of Treatment [...] On 0 3:29PM By EMILY BURGESS ; [facility] omprezole 20mg 30 Oral Capsule 07/13/2019 Provider: Diagnosis: Last Documented On 9 2:36PM By PAULA SOUZA LPN ; [facility] Mirena (52 MG) 20 MCG/24HR Intrauterine Intraute rine device 07/13/2019 Provider: Diagnosis: Last Documented On 0 3:54PM By SURI PRESTON ; [facility] Propranolol HCl 40MG Oral Tablet 11/23/2018 Provider : Diagnosis: Last Documented On 9 2:42PM By EMILY BURGESS ; [facility] Metoclopramide HCl 5MG Oral Tablet 11/23/2018 Provid er: Diagnosis: prn Last Documented On 9 2:43PM By EMILY BURGESS ; [facility] ClonazePAM 0.5MG Oral Tablet 10/27/2017 Provider: Diagnosis: Last Documented On 8 1:52PM By EMILY BURGESS ; [facility] Gabapentin 600MG Oral Tablet 10/27/2017 Provider: Diagnosis: Last Documented On 8 1:52PM By EMILY BURGESS ; [facility] Wellbutrin SR 150MG Oral Tablet Extended Release 12 Ho ur 10/27/2017 Provider: Diagnosis: bid Last Documented On 8 1:53PM By EMILY BURGESS ; [facility] Venlafaxine HCl ER 150MG Oral Capsule Extended R elease 24 Hour 10/27/2017 Provider: Diagnosis: bid Last Documented On 8 1:53PM By EMILY BURGESS ; [facility] LamoTRIgine 100MG Oral Tablet 10/27/2017 Provider: Diagnosis: Last Documented On 8 1:54PM By EMILY BURGESS ; [facility] Medications Administered Includes: Administered [...] Active Last Documented On 0 11:12AM ; [facility] COMPAZINE Allergy 10/27/2017 Active Last Documented On 0 11:12AM ; [facility] Amoxicillin Allergy 10/27/2017 Active Last Documented On 0 11:12AM ; [facility] Insurance Includes: Active Insurance Policies Plan Name Member ID Group # Subscriber Relationship Effect rhys Dates 1 - [facility] [id number] CONNER KONG Self Clinical Notes Includes: Clinical Notes from this encounter No Clinical Notes Recorded
--- OUTSIDE RECORDS SUMMARY | 2024-12-17 13:14 | XMS_ITS | Clinical Summary ---
Author Organization [facility] Address [address] [place] [address] Phone Care Team Providers Care Business Analytics Intern Name Role Phone DESTIN BENOIT MD Unavailable [phone] MADDIE CARRASCO Primary Care Provider [phone] Reason for Visit and Chief Complaint WELL WOMAN EXAM Problems Includes: Problems addressed during this encounter and other active Problems All Visits Onset Date Resolved Date Provider Condition S tatus Gynecologic Services Intrauterine Device (Iud) Checking 10/27/2017 DESTIN BENOIT MD Active Last Documented On 10/27/2017 2:56PM ; [facility] Note: Unchanged Urge and Stress Incontinence 10/27/2017 DESTIN BENOIT MD Active Last Documented On 10/27/2017 2:56PM ; [facility] Note: Unchanged Plan of Treatment No [...] On 0 3:29PM By EMILY BURGESS ; [facility] omprezole 20mg 30 Oral Capsule 07/13/2019 Provider: Diagnosis: Last Documented On 9 2:36PM By PAULA SOUZA LPN ; [facility] Mirena (52 MG) 20 MCG/24HR Intrauterine Intraute rine device 07/13/2019 Provider: Diagnosis: Last Documented On 0 3:54PM By SURI PRESTON ; [facility] Propranolol HCl 40MG Oral Tablet 11/23/2018 Provider : Diagnosis: Last Documented On 9 2:42PM By EMILY BURGESS ; [facility] Metoclopramide HCl 5MG Oral Tablet 11/23/2018 Provid er: Diagnosis: prn Last Documented On 9 2:43PM By EMILY BURGESS ; [facility] ClonazePAM 0.5MG Oral Tablet 10/27/2017 Provider: Diagnosis: Last Documented On 8 1:52PM By EMILY BURGESS ; [facility] Gabapentin 600MG Oral Tablet 10/27/2017 Provider: Diagnosis: Last Documented On 8 1:52PM By EMILY BURGESS ; [facility] Wellbutrin SR 150MG Oral Tablet Extended Release 12 Ho ur 10/27/2017 Provider: Diagnosis: bid Last Documented On 8 1:53PM By EMILY BURGESS ; [facility] Venlafaxine HCl ER 150MG Oral Capsule Extended R elease 24 Hour 10/27/2017 Provider: Diagnosis: bid Last Documented On 8 1:53PM By EMILY BURGESS ; [facility] LamoTRIgine 100MG Oral Tablet 10/27/2017 Provider: Diagnosis: Last Documented On 8 1:54PM By EMILY BURGESS ; [facility] Medications Administered Includes: Administered [...] Active Last Documented On 0 11:12AM ; [facility] COMPAZINE Allergy 10/27/2017 Active Last Documented On 0 11:12AM ; [facility] Amoxicillin Allergy 10/27/2017 Active Last Documented On 0 11:12AM ; [facility] Insurance Includes: Active Insurance Policies Plan Name Member ID Group # Subscriber Relationship Effect rhys Dates 1 - [facility] [id number] CONNER KONG Self Clinical Notes Includes: Clinical Notes from this encounter No Clinical Notes Recorded
--- OUTSIDE RECORDS SUMMARY | 2024-12-17 13:14 | XMS_ITS | Clinical Summary ---
Author Organization [facility] Address [address] [place] [address] Phone Care Team Providers Care Enamel Dipper Name Role Phone DESTIN BENOIT MD Unavailable [phone] MADDIE CARRASCO Primary Care Provider [phone] Reason for Visit and Chief Complaint WELL WOMAN EXAM Problems Includes: Problems addressed during this encounter and other active Problems All Visits Onset Date Resolved Date Provider Condition S tatus Gynecologic Services Intrauterine Device (Iud) Checking 10/27/2017 DESTIN BENOIT MD Active Last Documented On 10/27/2017 2:56PM ; [facility] Note: Unchanged Urge and Stress Incontinence 10/27/2017 DESTIN BENOIT MD Active Last Documented On 10/27/2017 2:56PM ; [facility] Note: Unchanged Plan of Treatment [...] On 0 3:29PM By EMILY BURGESS ; [facility] omprezole 20mg 30 Oral Capsule 07/13/2019 Provider: Diagnosis: Last Documented On 9 2:36PM By PAULA SOUZA LPN ; [facility] Mirena (52 MG) 20 MCG/24HR Intrauterine Intraute rine device 07/13/2019 Provider: Diagnosis: Last Documented On 0 3:54PM By SURI PRESTON ; [facility] Propranolol HCl 40MG Oral Tablet 11/23/2018 Provider : Diagnosis: Last Documented On 9 2:42PM By EMILY BURGESS ; [facility] Metoclopramide HCl 5MG Oral Tablet 11/23/2018 Provid er: Diagnosis: prn Last Documented On 9 2:43PM By EMILY BURGESS ; [facility] ClonazePAM 0.5MG Oral Tablet 10/27/2017 Provider: Diagnosis: Last Documented On 8 1:52PM By EMILY BURGESS ; [facility] Gabapentin 600MG Oral Tablet 10/27/2017 Provider: Diagnosis: Last Documented On 8 1:52PM By EMILY BURGESS ; [facility] Wellbutrin SR 150MG Oral Tablet Extended Release 12 Ho ur 10/27/2017 Provider: Diagnosis: bid Last Documented On 8 1:53PM By EMILY BURGESS ; [facility] Venlafaxine HCl ER 150MG Oral Capsule Extended R elease 24 Hour 10/27/2017 Provider: Diagnosis: bid Last Documented On 8 1:53PM By EMILY BURGESS ; [facility] LamoTRIgine 100MG Oral Tablet 10/27/2017 Provider: Diagnosis: Last Documented On 8 1:54PM By EMILY BURGESS ; [facility] Medications Administered Includes: Administered [...] Active Last Documented On 0 11:12AM ; [facility] COMPAZINE Allergy 10/27/2017 Active Last Documented On 0 11:12AM ; [facility] Amoxicillin Allergy 10/27/2017 Active Last Documented On 0 11:12AM ; [facility] Insurance Includes: Active Insurance Policies Plan Name Member ID Group # Subscriber Relationship Effect rhys Dates 1 - [facility] [id number] CONNER KONG Self Clinical Notes Includes: Clinical Notes from this encounter No Clinical Notes Recorded
--- OUTSIDE RECORDS SUMMARY | 2024-12-17 13:14 | XMS_ITS ---
Author Organization [facility] Address [address] [place] [address] Phone Care Team Providers Care Screen Door Maker Name Role Phone DESTIN BENOIT MD Unavailable [phone] MADDIE CARRASCO Primary Care Provider [phone] Problems Includes: Active, inactive, and resolved Problems All Visits Onset Date Resolved Date Provider Condition S tatus Gynecologic Services Intrauterine Device (Iud) Checking 10/27/2017 DESTIN BENOIT MD Active Last Documented On 10/27/2017 2:56PM ; [facility] Note: Unchanged Urge and Stress Incontinence 10/27/2017 DESTIN BENOIT MD Active Last Documented On 10/27/2017 2:56PM ; [facility] Note: Unchanged Plan of Treatment Findings Encounter Date Ordered Clinical summary pro vided to patient WELL WOMAN EXAM with SURI STONE RN STACI 07/30/2020 Last Documented On 0 4:11PM ; [facility] Ordered weight loss diet WELL WOMAN EXAM with IVETTE STONE RN STACI 07/30/2020 Last Documented On 0 4:11PM ; [facility] Cervix easily visualized , c ervix swabbed with Betadine PROCEDURE OFFICE with DESTIN BENOIT MD 07/13/2019 Last Documented On 9 3:10PM ; [facility] Metal Spraying Machine Operator removed. PROCEDURE OFFICE with DESTIN NATARAJAN MD 07/13/2019 Last Documented On 9 3:10PM ; [facility] IUD strings trimmed to 3-4 cm. PROCEDURE OFFICE with DESTIN BENOIT MD 07/13/2019 Last Documented On 9 3:10PM ; [facility] Mirena brush cleaner introduced t hrough cervix to 5cm PROCEDURE OFFICE with DESTIN BENOIT MD 07/13/2019 Last Documented On 9 3:10PM ; [facility] Mirena brush cleaner phlange posi tioned to 6 cm, also PROCEDURE OFFICE with DESTIN BENOIT MD 07/13/2019 Last Documented On 9 3:10PM ; [facility] Mirena released and brush cleaner advanced to 6 cm PROCEDURE OFFICE with DESTIN BENOIT MD 07/13/2019 Last Documented On 9 3:10PM ; [facility] Patient tolerated procedure well PROCEDURE OFFIC E with DESTIN BENOIT MD 07/13/2019 Last Documented On 9 3:10PM ; [facility] Sterile speculum inserted PROCEDURE OFFICE with DESTIN BENOIT MD 07/13/2019 Last Documented On 9 3:10PM ; [facility] Tenaculum applied to anterior cervix. NC OCEDURE OFFICE with DESTIN BENOIT MD 07/13/2019 Last Documented On 9 3:10PM ; [facility] Tenaculum removed and pressu re applied to tenaculum sites with cotton swabs until hemostatis obtained. PROCEDURE OFFICE with DESTIN BENOIT MD 07/13/2019 Last Documented On 9 3:10PM ; [facility] Uterus sounded to 6 cm PROCEDURE OFFICE with DESTIN BENOIT MD 07/13/2019 Last Documented On 9 3:10PM ; [facility] She will let us know if she has other problems in the meantime ANNUAL AMORTIZATION SCHEDULE CLERK EXAM with DESTIN BENOIT MD 11/23/2018 Last Documented On 9 3:12PM ; [facility] Ordered follow-up visit 1 ye ar or as needed ANNUAL AMORTIZATION SCHEDULE CLERK EXAM with DESTIN BENOIT MD 11/23/2018 Last Documented On 9 3:12PM ; [facility] She will let us know if she has other problems in the meantime NEW C 13 CATAPULT OPERATOR EXAM with DESTIN BENOIT MD 10/27/2017 Last Documented On 8 2:57PM ; [facility] Ordered follow-up visit 1 ye ar or as needed NEW C 13 CATAPULT OPERATOR EXAM with DESTIN BENOIT MD 10/27/2017 Last Documented On 8 2:57PM ; [facility] Instructions to patient Instructed to call if excess rhys bleeding or abdominal/pelvic pain Last Documented On 0 3:54PM ; [facility] Instructions For Patient: Mo nthly Self Breast Exam Last Documented On 0 3:54PM ; [facility] Recommend diet and exercise at least 30 min three times per week Last Documented On 0 3:54PM ; [facility] Instructions for patient : B reast Self Exam discussed Last Documented On 9 2:56PM ; [facility] Instructions for patient : B reast Self Exam discussed Last Documented On 8 2:24PM ; [facility] Education and Decision Aids were provided during visit for: Patient education RE: shalom kumar signals associated with hormonal contraceptive use including abdominal, chest, or leg pain, headaches or visual disturbances Last Documented On 0 3:54PM ; [facility] Patient Education: Daily irwin cium and vitamin D Last Documented On 0 3:54PM ; [facility] STD screening offered and de clined Last Documented On 9 2:56PM ; [facility] Bone Mineral Density Screeni ng guidelines reviewed Last Documented On 9 2:56PM ; [facility] Patient Education: Daily irwin cium and vitamin D Last Documented On 9 2:56PM ; [facility] Patient Education: weight be aring exercise Last Documented On 9 2:56PM ; [facility] Colonoscopy screening guidel feng discussed Last Documented On 9 2:56PM ; [facility] STD screening offered and de clined Last Documented On 8 2:24PM ; [facility] Bone Mineral Density Screeni ng guidelines reviewed Last Documented On 8 2:24PM ; [facility] Colonoscopy screening guidel feng discussed Last Documented On 8 2:24PM ; [facility] Assessments Includes: Assessments for all patient encounters Findings Encounter Date NORMAL FEMALE EXAM WELL WOMAN EXAM with SURI STONE RN [facility] 07/30/2020 Last Documented On 0 4:11PM ; [facility] Screen malignant neoplasm cervix WELL WO MAN EXAM with SURI STONE RN [facility] 07/30/2020 Last Documented On 0 4:11PM ; [facility] Checking intrauterine device (IUD) 1 MONTH CHECK with DESTIN BENOIT MD 09/30/2019 Last Documented On 0 11:37AM ; [facility] Removal and reinsertion of i ntrauterine device (IUD) PROCEDURE OFFICE with DESTIN BENOIT MD 07/13/2019 Last Documented On 9 3:10PM ; [facility] Checking intrauterine device (IUD) ANNUAL AMORTIZATION SCHEDULE CLERK EX AM with DESTIN BENOIT MD 11/23/2018 Last Documented On 9 3:12PM ; [facility] Fibrocystic disease of breast ANNUAL AMORTIZATION SCHEDULE CLERK EXAM wi th DESTIN BENOIT MD 11/23/2018 Last Documented On 9 3:12PM ; [facility] NORMAL FEMALE EXAM ANNUAL AMORTIZATION SCHEDULE CLERK EXAM with DESTIN NATARAJAN MD 11/23/2018 Last Documented On 9 3:12PM ; [facility] Screening Malig. Neoplasm Rectum ANNUAL AMORTIZATION SCHEDULE CLERK EXAM with DESTIN BENOIT MD 11/23/2018 Last Documented On 9 3:12PM ; [facility] Checking intrauterine device (IUD) NEW C 13 CATAPULT OPERATOR EXAM with DESTIN BENOIT MD 10/27/2017 Last Documented On 8 2:57PM ; [facility] Fibrocystic disease of breast NEW C 13 CATAPULT OPERATOR EXAM with DESTIN BENOIT MD 10/27/2017 Last Documented On 8 2:57PM ; [facility] NORMAL FEMALE EXAM NEW C 13 CATAPULT OPERATOR EXAM with DESTIN TAI MD 10/27/2017 Last Documented On 8 2:57PM ; [facility] Screening Malig. Neoplasm Rectum NEW C 13 CATAPULT OPERATOR EXAM wi th DESTIN BENOIT MD 10/27/2017 Last Documented On 8 2:57PM ; [facility] Urge and stress incontinence NEW C 13 CATAPULT OPERATOR EXAM with Kenisha BENOIT MD 10/27/2017 Last Documented On 8 2:57PM ; [facility] Instructions Includes: Instructions for all patient encounters Instructions to patient Instructed to call if excess rhys bleeding or abdominal/pelvic pain Last Documented On 0 3:54PM ; [facility] Instructions For Patient: Mo nthly Self Breast Exam Last Documented On 0 3:54PM ; [facility] Recommend diet and exercise at least 30 min three times per week Last Documented On 0 3:54PM ; [facility] Instructions for patient : B reast Self Exam discussed Last Documented On 9 2:56PM ; [facility] Instructions for patient : B reast Self Exam discussed Last Documented On 8 2:24PM ; [facility] Education and Decision Aids were provided during visit for: Patient education RE: shalom kumar signals associated with hormonal contraceptive use including abdominal, chest, or leg pain, headaches or visual disturbances Last Documented On 0 3:54PM ; [facility] Patient Education: Daily irwin cium and vitamin D Last Documented On 0 3:54PM ; [facility] STD screening offered and de clined Last Documented On 9 2:56PM ; [facility] Bone Mineral Density Screeni ng guidelines reviewed Last Documented On 9 2:56PM ; [facility] Patient Education: Daily irwin cium and vitamin D Last Documented On 9 2:56PM ; [facility] Patient Education: weight be aring exercise Last Documented On 9 2:56PM ; [facility] Colonoscopy screening guidel feng discussed Last Documented On 9 2:56PM ; [facility] STD screening offered and de clined Last Documented On 8 2:24PM ; [facility] Bone Mineral Density Screeni ng guidelines reviewed Last Documented On 8 2:24PM ; [facility] Colonoscopy screening guidel feng discussed Last Documented On 8 2:24PM ; [facility] Medical Equipment - Implanted Devices Includes: Current and historical Devices No Medical Equipment Recorded Medications Includes: Current and historical Medications Current Medications (continue as prescribed) ZyrTEC Allergy 10 MG Oral Tablet 07/30/2020 Provider : Diagnosis: Last Documented On 0 3:29PM By EMILY BURGESS ; [facility] omprezole 20mg 30 Oral Capsule 07/13/2019 Provider: Diagnosis: Last Documented On 9 2:36PM By PAULA SOUZA LPN ; [facility] Mirena (52 MG) 20 MCG/24HR Intrauterine Intraute rine device 07/13/2019 Provider: Diagnosis: Last Documented On 0 3:54PM By SURI MEDEIROS ; [facility] Propranolol HCl 40MG Oral Tablet 11/23/2018 Provider : Diagnosis: Last Documented On 9 2:42PM By EMILY BURGESS ; [facility] Metoclopramide HCl 5MG Oral Tablet 11/23/2018 Provid er: Diagnosis: prn Last Documented On 9 2:43PM By EMILY BURGESS ; [facility] ClonazePAM 0.5MG Oral Tablet 10/27/2017 Provider: Diagnosis: Last Documented On 8 1:52PM By EMILY BURGESS ; [facility] Gabapentin 600MG Oral Tablet 10/27/2017 Provider: Diagnosis: Last Documented On 8 1:52PM By EMILY BURGESS ; [facility] Wellbutrin SR 150MG Oral Tablet Extended Release 12 Ho ur 10/27/2017 Provider: Diagnosis: bid Last Documented On 8 1:53PM By EMILY BURGESS ; [facility] Venlafaxine HCl ER 150MG Oral Capsule Extended R elease 24 Hour 10/27/2017 Provider: Diagnosis: bid Last Documented On 8 1:53PM By EMLIY BURGESS ; [facility] LamoTRIgine 100MG Oral Tablet 10/27/2017 Provider: Diagnosis: Last Documented On 8 1:54PM By EMILY BURGESS ; [facility] Past Medications on file Diflucan 150MG Oral Tablet 03/09/2018 - 07/13/2019 Pro vider: DESTIN BENOIT MD Diagnosis: as directed one tablet po, prn yeast infection Last Documented On 9 2:35PM By PAULA SOUZA LPN ; [facility] Medications Administered Includes: Administered [...] Documented On 0 4:11PM ; [facility] The most recent IUD was inserted: 201809/30/2019 Last Documented On 0 11:37AM ; [facility] Not using drugs 11/23/2018 Last Documented On 9 3:12PM ; [facility] Smoking status : Never smoker 11/23/2018 Last Documented On 9 3:12PM ; [facility] Alcohol use 1-2 drinks a year 10/27/2017 Last Documented On 8 2:57PM ; [facility] In monogamous relationship 10/27/2017 Last Documented On 8 2:57PM ; [facility] Marital history 10/27/2017 Last Documented On 8 2:57PM ; [facility] Not exercising regularly 10/27/2017 Last Documented On 8 2:57PM ; [facility] Sexually active with 1 partners in the l ast year 10/27/2017 Last Documented On 8 2:57PM ; [facility] Procedures and Surgical History Surgical History Last Updated Surgical / procedural histor y Right fallopian tube and ovary removed because of enometriosis- TCK around 2008 [facility] ~Lump right breast- benign- at 20 years old ~C/S 12/21/07 TCK 10/27/2017 Last Documented On 8 2:57PM ; [facility] Medical History Includes: Medical History in patient's chart Description Last Updated A mammogram was performed 07/30/2020 Last Documented On 0 4:11PM ; [facility] LMP: 07/27/2020 and before that was 03/12 2007/30/2020 Last Documented On 0 4:11PM ; [facility] History of Pap smear done 11/23/201802/2020 Last Documented On 0 4:11PM ; [facility] History of screening mammogram was perfo rmed 09/06/2018 07/30/2020 Last Documented On 0 4:11PM ; [facility] Contraception: 07/13/19 jim nii of old mirena and insertion of new mirena; IUD this is the second one, done in [place] [facility] 201409/30/2019 Last Documented On 0 11:37AM ; [facility] Last pap smear date 11/23/2018 07/13/2019 Last Documented On 9 3:10PM ; [facility] Last mammogram date: 09/06/2018 9 Last Documented On 9 3:12PM ; [facility] chlamydia 2001 ~Bipolar ~Sleep apnea 01/2018 Last Documented On 8 2:57PM ; [facility] Result: normal 10/27/2017 Last Documented On 8 2:57PM ; [facility] Result: normal 10/27/2017 Last Documented On 8 2:57PM ; [facility] section x 1 10/27/2017 Last Documented On 8 2:57PM ; [facility] Vaginal delivery x 2 10/27/2017 Last Documented On 8 2:57PM ; [facility] Sexually active 10/27/2017 Last Documented On 8 2:57PM ; [facility] 3 10/27/2017 Last Documented On 8 2:57PM ; [facility] Para 3 10/27/2017 Last Documented On 8 2:57PM ; [facility] Family History Includes: Family History in patient's chart Description Last Updated Family history of malignant female breast neoplasm cousin double masectomy 10/27/2017 Last Documented On 8 2:57PM ; [facility] Fraternal history of diabetes mellitus b rother type 1 10/27/2017 Last Documented On 8 2:57PM ; [facility] Maternal aunt's history of m alignant female breast neoplasm maternal aunt from Breast ca ~ 10/27/2017 Last Documented On 8 2:57PM ; [facility] Maternal history of diabetes mellitus mo m type 2 10/27/2017 Last Documented On 8 2:57PM ; [facility] Maternal uncle's history of malignant neoplasm of large intestine Maternal uncle 10/27/2017 Last Documented On 8 2:57PM ; [facility] Paternal history of diabetes mellitus da d 10/27/2017 Last Documented On 8 2:57PM ; [facility] Paternal history of pure hypercholestero lemia dad 10/27/2017 Last Documented On 8 2:57PM ; [facility] Second child named 05/27/02 female 6# 10o z TCK 10/27/2017 Last Documented On 8 2:57PM ; [facility] First child named 02/16/01 male TCK 10/27 Last Documented On 8 2:57PM ; [facility] Third child named 12/21/07 male C/S 7# 7o z TCK 10/27/2017 Last Documented On 8 2:57PM ; [facility] Spouse name: Crow 10/27/2017 Last Documented On 8 2:57PM ; [facility] Family history of malignant neoplasm of the ovary cousin 10/27/2017 Last Documented On 8 2:57PM ; [facility] Hypertension 10/27/2017 Last Documented On 8 2:57PM ; [facility] Review of Systems Review of Systems [...] Documented On 0 11:12AM ; [facility] Amoxicillin Allergy 10/27/2017 Active Last Documented On 0 11:12AM ; [facility] Insurance Includes: Active Insurance Policies Plan Name Member ID Group # Subscriber Relationship Effect rhys Dates 1 - [facility] [id number] [place] KONG Self Clinical Notes Includes: Signed Clinical Notes starting from 09/12/2022 No Clinical Notes Recorded
--- OUTSIDE RECORDS SUMMARY | 2024-12-17 13:14 | XMS_ITS ---
Care Plan - [facility] Created on: December 17, 2024 CONNER KONG : 1970 Sex: Female Author Organization [facility] Address [address] [place] [address] Phone Care Team Providers Care Insulation Extruder Operator Name Role Phone CY PETERSON, DESTIN C Unavailable [phone] MADDIE CARRASCO Primary Care Provider [phone]
[2024-12-17 13:19] VITALS: BP 128/72; PULSE 85; RESP 16; TEMP 36.2; O2SAT 97
[2024-12-17 13:55] LABS: EDCOVIDSCREEN Negative (Negative); EDINFLUASCREEN Negative (Negative); EDINFLUBSCREEN Negative (Negative)
--- NOTE | 2024-12-17 14:09 | ED.GENADULT ---
HPI - General Adult General Chief complaint: Upper Respiratory Infection Stated complaint: Cough/Headache Source: patient Mode of arrival: ambulatory Limitations: no limitations History of Present Illness HPI narrative: Patient presents for evaluation of sick symptoms for last 3 days. Symptoms include sinus congestion, cervical lymphadenopathy, cough, wheezing, KRAFT and headache. She denies any fever, chills, nause, vomiting or diarrhea. She does not smoke. Her and child both recently had pneumonia. Related Data Home Medications ?Medication ?Instructions ?Recorded ?Confirmed ?Last Taken ?Type bupropion HCl 150 mg tablet,12 hr 150 mg PO BID 11/06/19 12/17/24 Unknown History sustained-release lamotrigine 100 mg tablet 100 mg PO BID 11/06/19 12/17/24 Unknown History venlafaxine 100 mg tablet 100 mg PO BID 11/06/19 12/17/24 Unknown History gabapentin 300 mg capsule 300 mg PO DAILY 02/15/21 12/21/23 Unknown History propranolol 20 mg tablet 20 mg PO BID 02/15/21 12/17/24 Unknown History cetirizine 10 mg tablet (Zyrtec) 10 mg PO DAILY 04/07/21 12/21/23 Unknown History ferrous sulfate 325 mg (65 mg 325 mg PO DAILY 04/07/21 12/21/23 Unknown History iron) tablet (FeroSul) famotidine 20 mg tablet 20 mg PO DAILY 12/21/23 12/17/24 Unknown History topiramate 25 mg tablet 25 mg PO PRN PRN mirgraines 12/21/23 12/17/24 Unknown History gabapentin 600 mg tablet mg 12/17/24 Unknown History meloxicam 15 mg tablet mg 12/17/24 Unknown History omeprazole 40 mg capsule,delayed mg 12/17/24 Unknown History release Allergies Allergy/AdvReac Type Severity Reaction Status Date / Time amoxicillin Allergy Unknown Hives Verified 12/17/24 13:30 calcium carbonate Allergy Unknown Unknown Verified 12/17/24 13:30 iohexol (From CONTRAST - CT, Allergy Unknown Unknown Verified 12/17/24 13:30 XRAY) prasterone (DHEA) Allergy Unknown Unknown Verified 12/17/24 13:30 prochlorperazine Allergy Unknown Unknown Verified 12/17/24 13:30 CALCIUM PHOSPHATE Allergy Unknown Unknown Uncoded 12/17/24 13:30 Review of Systems Review of Systems: CONSTITUTIONAL: Denies fever, chills, or sweats. EYES: Denies visual changes, redness, or discharge. ENT: Denies rhinorrhea, congestion, sore throat, or otalgia. CARDIOVASCULAR: Denies chest pain, palpitations, or edema. RESPIRATORY: Reports cough, wheezing and KRAFT GASTROINTESTINAL: Denies abdominal pain, nausea, vomiting, or diarrhea. GENITOURINARY: Denies dysuria or hematuria. SKIN: Denies rash or itching. MUSCULOSKELETAL: Denies back pain, joint pain, or myalgia. NEUROLOGIC: Denies headache, numbness, dizziness, or weakness. PSYCHIATRIC: Denies anxiety or depression. [facility] Past Medical History Medical History Sleep apnea Bipolar disorder Migraines Depression Surgical History Surgical History No pertinent past surgical history Family History Family History Other Diabetes mellitus Heart disease High cholesterol Hypertension Social History Social History Smoking status: Never smoker Alcohol intake: current Living arrangements: with family Gender identity (if verbalized by the patient): Female Sexual Orientation (if Verbalized by the Patient): Straight or Heterosexual Spiritual care concerns: No Exam Narrative: GENERAL: Well-appearing, well-nourished, and in no acute distress. HEAD: Normocephalic, atraumatic. EYES: PERRLA and EOMI. ENT: Nares clear, no rhinorrhea or epistaxis. Mucous membranes moist. Oropharynx without tonsillar hypertrophy exudate or other lesions. Bilateral TMs are mildly erythematous NECK: Supple. No adenopathy or masses. No carotid bruits or JVD CHEST: Clear to auscultation. No respiratory distress. No wheezes rales or rhonchi HEART: Regular rate and rhythm. No murmur heard. Normal peripheral pulses. ABDOMEN: Soft, nontender, nondistended, normal active bowel sounds. EXTREMITIES: Normal range of motion. No edema. SKIN: Warm, dry, no rash. NEURO: No focal deficits. Alert and oriented x3. PSYCH: Normal mood and affect. Course Course Emergency Course: This is a 54 year old female who presented for evaluation of respiratory symptoms. COVID and flu negative. CXR negative. Exam consistent with acute viral syndrome. Recommend increased hydration. She would like a script for prednisone and albuterol as she has been wheezing at home. Instructed to be cautious with inhaler as she is on propranolo.. She should follow up with her PCP and go to the ER for worsening symptoms. Pt in agreement with plan of care. Level of Care: Express Care Visit Vital Signs Vital signs: Vital Signs Temperature 36.2 C L 12/17/24 13:19 Pulse Rate 85 12/17/24 13:19 Respiratory Rate 16 12/17/24 13:19 Blood Pressure 128/72 12/17/24 13:19 Pulse Oximetry 97 12/17/24 13:19 Oxygen Delivery Room Air 12/17/24 13:19 Temperature 36.2 C L 12/17/24 13:19 Pulse Rate 85 12/17/24 13:19 Respiratory Rate 16 12/17/24 13:19 Blood Pressure 128/72 12/17/24 13:19 Pulse Oximetry 97 12/17/24 13:19 Oxygen Delivery Room Air 12/17/24 13:19 Medical Decision Making Vital Signs Vital Signs: Vital Signs Temperature 36.2 C L 12/17/24 13:19 Pulse Rate 85 12/17/24 13:19 Respiratory Rate 16 12/17/24 13:19 Blood Pressure 128/72 12/17/24 13:19 Pulse Oximetry 97 12/17/24 13:19 Oxygen Delivery Room Air 12/17/24 13:19 Temperature 36.2 C L 12/17/24 13:19 Pulse Rate 85 12/17/24 13:19 Respiratory Rate 16 12/17/24 13:19 Blood Pressure 128/72 12/17/24 13:19 Pulse Oximetry 97 12/17/24 13:19 Oxygen Delivery Room Air 12/17/24 13:19 Lab Data Labs: Lab Results 12/17/24 Range/Units 13:53 POC Influenza A Ag Negative (Negative) POC Influenza B Ag Negative (Negative) POC SARS CoV-2 Ag Negative (Negative) Imaging Data Radiologist's impression: XR chest 2V Ordering provider: EDI Barrera History: 54 years Female with . cough . Comparison: None. FINDINGS: MEDIASTINUM: The cardiac silhouette is not enlarged. LUNGS: No infiltrates, effusions or pneumothorax. OTHER: No free air under the diaphragm. IMPRESSION: No acute cardiopulmonary pathology. Discharge Plan Discharge Clinical Impression: Viral upper respiratory infection Patient Disposition: Home Condition: Stable Instructions: Antibiotic Form, Upper Respiratory Infection (DC), Viral Syndrome (ED) Additional Instructions: DEXTROMETHORPHAN MAY HELP WITH COUGH Patient Language: Wolof Prescriptions: New prednisone 50 mg tablet 50 mg PO DAILY Qty: 5 0RF albuterol sulfate [Ventolin HFA] 90 mcg/actuation HFA aerosol inhaler 2 puff inhalation QID PRN (Reason: shortness of breath or wheezing) Qty: 8.5 0RF No Action ferrous sulfate [FeroSul] 325 mg (65 mg iron) tablet 325 mg PO DAILY cetirizine [Zyrtec] 10 mg Tablet 10 mg PO DAILY gabapentin 600 mg tablet meloxicam 15 mg tablet omeprazole 40 mg capsule,delayed release(DR/EC) bupropion HCl 150 mg Tablet Sustained-Release 12 Hr 150 mg PO BID lamotrigine 100 mg Tablet 100 mg PO BID venlafaxine 100 mg Tablet 100 mg PO BID propranolol 20 mg tablet 20 mg PO BID gabapentin 300 mg capsule 300 mg PO DAILY topiramate 25 mg tablet 25 mg PO PRN PRN (Reason: mirgraines) famotidine 20 mg tablet 20 mg PO DAILY fluticasone propionate [Flonase Allergy Relief] 50 mcg/actuation spray,suspension 1 spray intranasal Q12H Qty: 16 0RF Rx Instructions: administer into each nostril azithromycin 250 mg tablet See Rx Instructions .ROUTE .COMPLEX Qty: 6 0RF Rx Instructions: For 250 mg dose pack: take 500 mg today (day 1), then 250 mg for 4 days (days 2-5) Follow-up/Referrals: Karl Mccallum MD [Physician] - Time of Disposition: 14:51
== END 2024-12-17 14:55 | disposition home or self-care (01) ==
PROVIDERS: Emergency Provider Nurse Practitioner
DX: J06.9 Acute upper respiratory infection, unspecified (principal); Z20.822 Contact with and (suspected) exposure to COVID-19; F31.9 Bipolar disorder, unspecified
CPT/HCPCS: 71046; 87426; 87804; 99213; G0463